=== PATIENT | female | born 1945 | race Caucasian/White ===

== ENCOUNTER → 2016-10-31 | Outpatient (CLI) | payer MEDICARE ==
[~2016-10-31] MED LIST: /WARF5TA OR; ACET500T2 OR; ANTIDIARRHEAL OR; BISO5TAB54 PO; BYSTOLIC PO; CYMB60CA3 PO; FERR325T OR; GLIP5TAB2 PO; GLUC850T OR; LISI2.5T PO; METF1000 PO; PAIN325T OR; PERC5TAB8 OR; PERC7.5T12 PO; PRAV20TA2 OR; WARF5VL PO; [UNRECOGNIZED DRUG - OTHER] OR; acetaminophen OR
--- NOTE | 2016-10-31 09:15 | ECGEPIP ---
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
[2016-10-31 09:19] LABS: ANION GAP 13 MEQ/L (8-16); BLOOD UREA NITROGEN 17 MG/DL (7-18); CALCIUM LEVEL 9.6 MG/DL (8.8-10.2); CARBON DIOXIDE LEVEL 24 MEQ/L (21-32); CHLORIDE LEVEL 103 MEQ/L (98-107); CREATININE FOR GFR 0.75 MG/DL (0.55-1.02); GLOMERULAR FILTRATION RATE > 60.0 (>39); GLUCOSE, FASTING 288 MG/DL (83-110); SODIUM LEVEL 140 MEQ/L (136-145)
[2016-10-31 09:58] LABS: COLLAGEN ADP 84 SECONDS (56-103)
== END ==
LOC: M LAB 08:12
PROVIDERS: ATTEND Ophthalmology
DX: Z01.818 Encounter for other preprocedural examination (principal); H25.13 Age-related nuclear cataract, bilateral

== ENCOUNTER → 2016-11-06 | Outpatient (REF) | payer MEDICARE ==
[~2016-11-06] MED LIST changes: +ASPI1TAB24 PO; +BISO5TAB5 PO; +FOLI1TAB2 PO; +GLIP5TAB8 PO; +LISI-542 PO; +METF500T PO; +NOVOINJ13 SC; +SIMV40TA2 PO; +SULF500T2 PO; +VITA500046 PO
== END ==
LOC: M LAB REF 12:59
PROVIDERS: ATTEND Nurse Practitioner Adult Health
DX: M05.79 Rheumatoid arthritis with rheumatoid factor of multiple sites without organ or systems involvement (principal)

== ENCOUNTER → 2016-11-14 | Day surgery (SDC) | payer MEDICARE ==
[~2016-11-14] VITALS: Ht 152.4 cm; Wt 81.6 kg
[~2016-11-14] MED LIST changes: +ACETAMINOPHEN 325 MG TAB As Ordered ONE; +ACETAMINOPHEN 325 MG TAB PO PRN; +ACETYLCHOLINE OPHTH SOLN 1% 2ML As Ordered ONE; +ACETYLCHOLINE OPHTH SOLN 1% 2ML XX ONE; +BALANCED SALT IRRIGATION SOLUTION 500ML BAG (FOR OR EYE MACHINE) As Ordered ONE; +BALANCED SALT IRRIGATION SOLUTION 500ML BAG (FOR OR EYE MACHINE) XX ONE; +CEFUROXIME 1MG/0.1ML INTRACAMERAL INJ As Ordered ONE; +CEFUROXIME 1MG/0.1ML INTRACAMERAL INJ ICAM ONE; +CYCLOPENTOLATE 2% OPHTH SOLN As Ordered ONE; +CYCLOPENTOLATE 2% OPHTH SOLN XX ONE; +D5W/0.2% SODIUM CHLORIDE 250 ML IV SCH; +HEALON DUET (HEALON 10MG/ML 0.55ML & HEALON ENDOCOAT 30MG/ML 0.85ML) As Ordered ONE; +HEALON DUET (HEALON 10MG/ML 0.55ML & HEALON ENDOCOAT 30MG/ML 0.85ML) IO ONE; +LABETALOL HCL 100 MG/20 ML VIAL As Ordered ONE; +LIDOCAINE 0.75%/EPINEPHRINE 0.025% IN BSS 1ML SYR INTRACAMERAL (OR ONLY) As Ordered ONE; +LIDOCAINE 0.75%/EPINEPHRINE 0.025% IN BSS 1ML SYR INTRACAMERAL (OR ONLY) ICAM ONE; +LIDOCAINE 4% INJ 5 ML AMP XX ONE; +MIDAZOLAM INJ 2 MG/2 ML VIAL (J2250) As Ordered ONE; +OFLOXACIN 0.3 % (OCUFLOX) OPTH SOL 5ML OD ONE; +PHENYLEPHRINE 2.5% OPHTH SOL 2ML OD ONE; +POVIDONE-IODINE 5% OPHTH PREP SOL 30ML As Ordered ONE; +PROPARACAINE 0.5% OPHTH SOL 15ML OD ONE; +TOBRADEX OPHTH OINT 3.5 GM As Ordered ONE; +TOBRADEX OPHTH OINT 3.5 GM XX ONE; +TRIMETHOBENZAMIDE 300 MG CAP PO PRN; +TROPICAMIDE 1% OPHTH SOLN 2 ML OD ONE; +fentaNYL 100 MCG/2 ML INJECTION (J3010) As Ordered ONE
[2016-11-14 12:45] VITALS: BP 134/63
--- NOTE | 2016-11-15 09:19 | RO ---
DATE OF PROCEDURE: 11/14/2016 PREOPERATIVE DIAGNOSES: 1. Visually significant nuclear sclerotic cataract, right eye 2. Natural monovision, NEAR vision of the right eye 3. Small pupil, right eye POSTOPERATIVE DIAGNOSES: 1. Visually significant nuclear sclerotic cataract, right eye 2. Natural monovision, NEAR vision of the right eye 3. Small pupil, right eye PROCEDURE: Complex extracapsular cataract removal with placement of a basic implant, ZCB00, 24.0 diopter for NEAR vision, with use of a Malyugin ring SURGEON: Brandon Montes DO [employer] DRIVER: ANESTHESIA: Local with monitored anesthesia care (MAC). COMPLICATIONS: None. POSTOPERATIVE CONDITION: Stable. INDICATION FOR SURGERY: Blurred vision right eye affecting patient's activities of daily living. DESCRIPTION OF PROCEDURE: The patient was seen in the preoperative area and properly identified. Consents were reviewed, and patient voluntarily elected to proceed with near vision implant of the right eye. The correct operative eye was identified and marked. Attention was turned to that eye. The patient received topical antibiotics in the preoperative area. The patient then received topical dilating drops consisting of tropicamide and phenylephrine. The patient was then transferred to the operating room. The correct side was reidentified. The patient received topical anesthetics and antibiotics on the surface of the eye. The eye was prepped and draped in a sterile fashion. The upper and lower eyelids were isolated with Tegaderm tape, and the lids were held open with an adjustable speculum. Using a sideport blade, a paracentesis incision was made. Intraocular preservative-free lidocaine was then injected into the anterior chamber. Viscoelastic was then injected into the anterior chamber through the paracentesis. Using a 2.65 mm sharp-tipped keratome, the anterior chamber was entered via a temporal clear corneal incision. The patient was noted to have a small pupil, and the decision to place a Malyugin ring was made. Additional viscoelastic was placed, and a 7.0mm Malyugin ring was placed to expand the pupil and then centered. A continuous curvilinear capsulorrhexis was created with the aid of a 26-gauge cystotome and Utrata forceps. Hydrodissection was performed with balanced salt solution (BSS) on a blunt cannula until the nucleus was freely mobile. The crystalline lens was phacoemulsified and aspirated. Additional cohesive viscoelastic was placed into the capsular bag to deepen it. A ZCB00, 24.0 diopter lens was placed into the capsular bag and confirmed by visualizing the continuous curvilinear capsulorrhexis. The Malyugin ring was removed from the iris and then the eye. Additional irrigation and aspiration was used to remove cortical material and remaining viscoelastic. The clear corneal incision was hydrated with BSS on a blunt cannula. The lens was well positioned. The incisions were then tested for leaks and found to be negative. The eye was then palpated for appropriate pressure and adjusted accordingly with BSS. The eyelid speculum was then carefully removed. Tobradex ointment was placed in the eye. An eye patch and shield were then secured over the eye. The patient tolerated the procedure well and was discharged to the recovery unit in a stable condition. MORENITA
== END | disposition home or self-care (01) ==
LOC: M SDC 08:11
PROVIDERS: ATTEND Ophthalmology
DX: H25.11 Age-related nuclear cataract, right eye (principal); H21.561 Pupillary abnormality, right eye; I10 Essential (primary) hypertension; E78.5 Hyperlipidemia, unspecified; E10.9 Type 1 diabetes mellitus without complications; Z79.4 Long term (current) use of insulin; Z79.82 Long term (current) use of aspirin; Z87.891 Personal history of nicotine dependence; D64.9 Anemia, unspecified
CPT/HCPCS: 66982; J2250; J3010; V2632

== ENCOUNTER → 2016-12-05 | Day surgery (SDC) | payer MEDICARE ==
[~2016-12-05] VITALS: Ht 152.4 cm; Wt 81.6 kg
[~2016-12-05] MED LIST changes: -ACETAMINOPHEN 325 MG TAB As Ordered ONE; +AcetaZOLAMIDE 500 MG ER CAP PO ONE; -BALANCED SALT IRRIGATION SOLUTION 500ML BAG (FOR OR EYE MACHINE) XX ONE; +BISOPROLOL FUM 2.5 MG PER 1/2TAB PO ONE; -CYCLOPENTOLATE 2% OPHTH SOLN As Ordered ONE; -CYCLOPENTOLATE 2% OPHTH SOLN XX ONE; +D5W/0.2% SODIUM CHLORIDE 1,000 ML IV SCH; -D5W/0.2% SODIUM CHLORIDE 250 ML IV SCH; -HEALON DUET (HEALON 10MG/ML 0.55ML & HEALON ENDOCOAT 30MG/ML 0.85ML) IO ONE; -LABETALOL HCL 100 MG/20 ML VIAL As Ordered ONE; +LIDOCAINE 4% INJ 5 ML AMP As Ordered ONE; +LIDOCAINE 4% INJ 5 ML AMP OU ONE; -LIDOCAINE 4% INJ 5 ML AMP XX ONE; -OFLOXACIN 0.3 % (OCUFLOX) OPTH SOL 5ML OD ONE; +OFLOXACIN 0.3 % (OCUFLOX) OPTH SOL 5ML OS ONE; -PHENYLEPHRINE 2.5% OPHTH SOL 2ML OD ONE; +PHENYLEPHRINE 2.5% OPHTH SOL 2ML OS ONE; -PROPARACAINE 0.5% OPHTH SOL 15ML OD ONE; +PROPARACAINE 0.5% OPHTH SOL 15ML OS ONE; -TOBRADEX OPHTH OINT 3.5 GM XX ONE; -TROPICAMIDE 1% OPHTH SOLN 2 ML OD ONE; +TROPICAMIDE 1% OPHTH SOLN 2 ML OS ONE
[2016-12-05 07:20] VITALS: BP 175/75
[2016-12-05 08:15] VITALS: BP 143/75
--- NOTE | 2016-12-05 19:43 | RO ---
DATE OF PROCEDURE: 12/05/2016 PREOPERATIVE DIAGNOSIS: 1. Visually significant nuclear sclerotic cataract, left eye. 2. Pseudoexfoliation, left eye 3. Small pupil, left eye POSTOPERATIVE DIAGNOSIS: 1. Visually significant nuclear sclerotic cataract, left eye. 2. Pseudoexfoliation, left eye 3. Small pupil, left eye PROCEDURE: Complex cataract extraction with use of phacoemulsification, Malyugin ring and placement of intraocular lens ZCB00 22.0 diopters, left eye. SURGEON: Brandon Montes DO WATER SUPERVISOR: ANESTHESIA: Local with monitored anesthesia care (MAC) and use of Shugarcaine ( 4% lidocaine, 1:1000 epinephrine). COMPLICATIONS: None. POSTOPERATIVE CONDITION: Stable. INDICATION FOR SURGERY: Blurred vision left eye affecting patient's activities of daily living. DESCRIPTION OF PROCEDURE: The patient was seen in the preoperative area and properly identified. The correct operative eye was identified and marked. Attention was turned to that eye. The patient received optical antibiotics in the preoperative area. The patient then received topical dilating drops consisting of tropicamide and phenylephrine. The patient was then transferred to the operating room. The correct side was reidentified. The patient received topical anesthetics and antibiotics on the surface of the eye. The eye was prepped and draped in a sterile fashion. The upper and lower eyelids were isolated with Tegaderm tape, and the lids were held open with an adjustable speculum. Using a sideport blade, a paracentesis incision was made. Shugarcaine was then injected into the anterior chamber. Viscoelastic was then injected into the anterior chamber through the paracentesis. Using a 2.65 mm sharp-tipped keratome, the anterior chamber was entered via a temporal clear corneal incision. A 7.0mm Malyugin ring was placed without difficulty A continuous curvilinear capsulorrhexis was created with the aid of a 26-gauge cystotome and Utrata forceps. Hydrodissection was performed with BSS on a blunt cannula until the nucleus was freely mobile. The crystalline lens was phacoemulsified and aspirated. Additional cohesive viscoelastic was placed into the capsular bag to deepen it. A ZCB00 22.0 diopter lens was placed into the capsular bag and confirmed by visualizing the continuous curvilinear capsulorrhexis. Additional irrigation and aspiration was used to remove cortical material. The Malyugin ring was removed from the eye, and irrigation and aspiration was then used removing the remaining viscoelastic. The clear corneal incision was hydrated with BSS on a blunt cannula. The lens was well positioned. The incisions were then tested for leaks and found to be negative. Miochol was placed showing a moderately small pupil. The eye was then palpated for appropriate pressure and adjusted accordingly with BSS. Cefuroxime, 0.5cc was placed into the anterior chamber. The eyelid speculum was then carefully removed. Tobradex ointment was placed in the eye. An eye patch and shield were then secured over the eye. The patient tolerated the procedure well and was discharged to the recovery unit in a stable condition. MORENITA
== END | disposition home or self-care (01) ==
LOC: M SDC 06:24
PROVIDERS: ATTEND Ophthalmology
DX: H25.12 Age-related nuclear cataract, left eye (principal); H25.89 Other age-related cataract; H21.562 Pupillary abnormality, left eye; E10.9 Type 1 diabetes mellitus without complications; I10 Essential (primary) hypertension; E78.5 Hyperlipidemia, unspecified; Z87.891 Personal history of nicotine dependence; Z79.899 Other long term (current) drug therapy; Z79.82 Long term (current) use of aspirin; Z79.4 Long term (current) use of insulin
CPT/HCPCS: 66982; J2250; J3010; V2632

== ENCOUNTER → 2017-02-06 | Outpatient (CLI) | payer MEDICARE ==
[~2017-02-06] MED LIST changes: -ACETAMINOPHEN 325 MG TAB PO PRN; -ACETYLCHOLINE OPHTH SOLN 1% 2ML As Ordered ONE; -ACETYLCHOLINE OPHTH SOLN 1% 2ML XX ONE; -AcetaZOLAMIDE 500 MG ER CAP PO ONE; -BALANCED SALT IRRIGATION SOLUTION 500ML BAG (FOR OR EYE MACHINE) As Ordered ONE; -BISOPROLOL FUM 2.5 MG PER 1/2TAB PO ONE; -CEFUROXIME 1MG/0.1ML INTRACAMERAL INJ As Ordered ONE; -CEFUROXIME 1MG/0.1ML INTRACAMERAL INJ ICAM ONE; -D5W/0.2% SODIUM CHLORIDE 1,000 ML IV SCH; -HEALON DUET (HEALON 10MG/ML 0.55ML & HEALON ENDOCOAT 30MG/ML 0.85ML) As Ordered ONE; -LIDOCAINE 0.75%/EPINEPHRINE 0.025% IN BSS 1ML SYR INTRACAMERAL (OR ONLY) As Ordered ONE; -LIDOCAINE 0.75%/EPINEPHRINE 0.025% IN BSS 1ML SYR INTRACAMERAL (OR ONLY) ICAM ONE; -LIDOCAINE 4% INJ 5 ML AMP As Ordered ONE; -LIDOCAINE 4% INJ 5 ML AMP OU ONE; -MIDAZOLAM INJ 2 MG/2 ML VIAL (J2250) As Ordered ONE; -OFLOXACIN 0.3 % (OCUFLOX) OPTH SOL 5ML OS ONE; -PHENYLEPHRINE 2.5% OPHTH SOL 2ML OS ONE; -POVIDONE-IODINE 5% OPHTH PREP SOL 30ML As Ordered ONE; -PROPARACAINE 0.5% OPHTH SOL 15ML OS ONE; -TOBRADEX OPHTH OINT 3.5 GM As Ordered ONE; -TRIMETHOBENZAMIDE 300 MG CAP PO PRN; -TROPICAMIDE 1% OPHTH SOLN 2 ML OS ONE; -fentaNYL 100 MCG/2 ML INJECTION (J3010) As Ordered ONE
--- NOTE | 2017-02-06 11:01 | REP ---
Clinical: Shortness of breath. Technique: PA and lateral. Comparison: 05/26/2013. Findings: Diffuse chronic interstitial changes are appreciated and superimposed interstitial edema cannot be excluded. No focal consolidation, effusion, or pneumothorax. Mediastinum and cardiac silhouette are stable with mild cardiomegaly again suggested. Skeletal structures are intact. Impression: Chronic interstitial changes. Cannot exclude mild pulmonary vascular congestion or interstitial edema. Signed by Kalpesh Bahena MD 02/06/2017 10:53 A
== END ==
LOC: M WUC 10:44
PROVIDERS: ATTEND Nurse Practitioner Adult Health
DX: R07.89 Other chest pain (principal); R06.02 Shortness of breath

== ENCOUNTER → 2017-02-20 | Outpatient (REF) | payer MEDICARE | LOC: M LAB REF 12:25 | PROVIDERS: ATTEND Nurse Practitioner Adult Health | DX: N39.0 Urinary tract infection, site not specified (principal) ==

== ENCOUNTER → 2017-04-11 | Outpatient (REF) | payer OTHER ==
[~2017-04-11] MED LIST changes: +ASPI-161 PO; -ASPI1TAB24 PO; -FOLI1TAB2 PO; +FOLI1TAB4 PO; -METF500T PO; +METF500T13 PO
[2017-04-11 14:13] LABS: COMPLEMENT C3 151 MG/DL (90-180); COMPLEMENT C4 12.5 MG/DL (10-40); TOTAL PROTEIN 7.4 GM/DL (6.4-8.2)
[2017-04-14 10:50] LABS: ALBUMIN % 53.2 % (55.8-66.1)
[2017-04-14 10:51] LABS: ALBUMIN 3.94 GM/DL (3.29-5.55); GAMMA GLOBULIN % 16.2 % (11.1-18.8)
[2017-04-17 00:07] LABS: KAPPA/LAMBDA RATIO SERUM 1.16 (0.26-1.65)
== END ==
LOC: M LAB REF 13:18
PROVIDERS: ATTEND Internal Medicine Nephrology
DX: R80.9 Proteinuria, unspecified (principal); R31.9 Hematuria, unspecified

== ENCOUNTER → 2017-05-02 | Outpatient (REF) | payer OTHER | LOC: M LAB REF 14:20 | PROVIDERS: ATTEND Nurse Practitioner Adult Health | DX: M05.79 Rheumatoid arthritis with rheumatoid factor of multiple sites without organ or systems involvement (principal) ==

== ENCOUNTER → 2017-05-21 | Outpatient (CLI) | payer OTHER ==
[2017-05-21 13:43] LABS: BASO % 0.9 % (0.0-1.0); EOS # 0.3 K/mm3 (0.0-0.50); LYMPH # 0.7 K/mm3 (1.5-4.5); LYMPH % 17.9 % (24.0-44.0); MEAN CORPUSCULAR HEMOGLOBIN 27.3 pg (27.0-33.0); MEAN CORPUSCULAR HGB CONC 32.6 g/dl (32.0-36.5); MEAN CORPUSCULAR VOLUME 83.6 fl (80.0-96.0); MONO # 0.3 K/mm3 (0.0-0.8); NEUTROPHILS # 2.5 K/mm3 (1.8-7.7); NEUTROPHILS % 63.2 % (36.0-66.0); RED CELL DISTRIBUTION WIDTH 15.3 % (11.5-14.5); WHITE BLOOD COUNT 3.9 K/mm3 (4.0-10.0)
== END ==
LOC: M WUC 09:55
PROVIDERS: ATTEND Internal Medicine Rheumatology
DX: R79.89 Other specified abnormal findings of blood chemistry (principal)

== ENCOUNTER 2017-07-11 16:11 | Emergency (ER) | payer OTHER ==
[~2017-07-11] VITALS: Ht 149.9 cm; Wt 86.4 kg
[2017-07-11] MEDS ORDERED: ACETAMINOPHEN 325 MG TAB PO ONE (18:00)
[2017-07-11 19:31] VITALS: BP 119/57
--- NOTE | 2017-07-11 19:34 | REP ---
Left wrist series: Four views: History: Trauma. Findings: Four views of the left wrist show diffuse osteopenia. There is mild osteoarthritic spurring at the navicular multangular and first carpometacarpal articulations. No fracture is seen. Impression: No fracture noted. Diffuse osteopenia. Mild osteoarthritic changes. Signed by Aaron Poole MD 07/11/2017 07:46 P
--- NOTE | 2017-07-11 19:34 | REP ---
Left knee series: Four views. History: Trauma. Findings: Four views of the left knee demonstrate a left knee arthroplasty with its components in good position. There is diffuse osteopenia. Vascular calcification is noted. No fracture or subluxation is seen. Impression: No traumatic abnormality. Left knee arthroplasty components in good position. Signed by Aaron Poole MD 07/11/2017 07:46 P
== END 2017-07-11 19:34 | disposition home or self-care (01) ==
LOC: M ED 16:11
DX: S39.012A Strain of muscle, fascia and tendon of lower back, initial encounter (principal); S29.012A Strain of muscle and tendon of back wall of thorax, initial encounter; S80.02XA Contusion of left knee, initial encounter; S60.212A Contusion of left wrist, initial encounter; W01.0XXA Fall on same level from slipping, tripping and stumbling without subsequent striking against object, initial encounter; Y92.099 Unspecified place in other non-institutional residence as the place of occurrence of the external cause; Y93.9 Activity, unspecified; Y99.9 Unspecified external cause status; I10 Essential (primary) hypertension; E11.9 Type 2 diabetes mellitus without complications; Z96.652 Presence of left artificial knee joint; M85.88 Other specified disorders of bone density and structure, other site; M19.032 Primary osteoarthritis, left wrist; Z79.82 Long term (current) use of aspirin; Z79.4 Long term (current) use of insulin; Z79.899 Other long term (current) drug therapy

== ENCOUNTER → 2017-08-04 | Outpatient (CLI) | payer OTHER ==
[2017-08-04 14:18] LABS: EOS # 0.3 10^3/uL (0.0-0.50); EOS % 7.9 % (0.0-3.0); IMMATURE GRANULOCYTE % 0.2 % (0-0); LYMPH # 0.9 10^3/uL (1.5-4.5); LYMPH % 20.5 % (24.0-44.0); MEAN CORPUSCULAR HEMOGLOBIN 26.3 pg (27.0-33.0); MEAN CORPUSCULAR HGB CONC 30.8 g/dl (32.0-36.5); MEAN CORPUSCULAR VOLUME 85.3 fl (80.0-96.0); MONO # 0.5 10^3/uL (0.0-0.8); MONO % 11.9 % (0.0-5.0); NEUTROPHILS # 2.5 10^3/uL (1.8-7.7); NEUTROPHILS % 58.5 % (36.0-66.0); PLATELET COUNT, AUTOMATED 165 10^3/uL (150-450); WHITE BLOOD COUNT 4.2 10^3/uL (4.0-10.0)
== END ==
LOC: M WUC 08:44
DX: R79.89 Other specified abnormal findings of blood chemistry (principal)

== ENCOUNTER → 2018-03-17 | Outpatient (CLI) | payer OTHER ==
[2018-03-17 12:10] LABS: BASO % 0.6 % (0.0-1.0); EOS # 0.3 10^3/uL (0.0-0.50); EOS % 6.3 % (0.0-3.0); HEMATOCRIT 46.4 % (36.0-47.0); HEMOGLOBIN 13.7 g/dl (12.0-15.5); IMMATURE GRANULOCYTE % 0.2 % (0-3.0); LYMPH # 0.8 10^3/uL (1.5-4.5); LYMPH % 17.6 % (24.0-44.0); MEAN CORPUSCULAR HEMOGLOBIN 25.1 pg (27.0-33.0); MEAN CORPUSCULAR HGB CONC 29.5 g/dl (32.0-36.5); MEAN CORPUSCULAR VOLUME 85.1 fl (80.0-96.0); MONO # 0.6 10^3/uL (0.0-0.8); MONO % 12.8 % (0.0-5.0); NEUTROPHILS % 62.5 % (36.0-66.0); PLATELET COUNT, AUTOMATED 169 10^3/uL (150-450); RED BLOOD COUNT 5.45 10^6/uL (4.00-5.40); RED CELL DISTRIBUTION WIDTH 16.7 % (11.5-14.5); WHITE BLOOD COUNT 4.8 10^3/uL (4.0-10.0)
[2018-03-17 12:33] LABS: ERYTHROCYTE SEDIMENTATION RATE 6 mm/hr (0-30)
[2018-03-17 13:00] LABS: ALBUMIN 3.3 GM/DL (3.2-5.2); ALT/SGPT 26 U/L (12-78); AST/SGOT 25 U/L (7-37); CREATININE FOR GFR 0.66 MG/DL (0.55-1.30); GLOMERULAR FILTRATION RATE > 60.0 (>39)
== END ==
LOC: M WUC 08:45
DX: M05.79 Rheumatoid arthritis with rheumatoid factor of multiple sites without organ or systems involvement (principal)
CPT/HCPCS: 84460

== ENCOUNTER → 2018-07-29 | Outpatient (REF) | payer OTHER ==
[2018-07-29 18:48] LABS: C REACTIVE PROTEIN QUANTITATIV 1.01 MG/DL (0.00-0.30)
== END ==
LOC: M LAB REF 17:52
DX: M05.79 Rheumatoid arthritis with rheumatoid factor of multiple sites without organ or systems involvement (principal)
CPT/HCPCS: 86140

== ENCOUNTER → 2018-07-30 | Outpatient (CLI) | payer OTHER | LOC: M WUC 09:48 | DX: M19.042 Primary osteoarthritis, left hand (principal) | CPT/HCPCS: 73130 ==

== ENCOUNTER → 2018-08-28 | Outpatient (REF) | payer OTHER ==
[2018-08-31 10:53] LABS: PTH INTACT 64.6 PG/ML (18.5-88.0)
== END ==
LOC: M LAB REF 09:44
DX: E83.52 Hypercalcemia (principal)
CPT/HCPCS: 83970

== ENCOUNTER 2019-03-04 10:03 | Inpatient (IN) | payer MEDICARE, OTHER ==
[~2019-03-04] VITALS: Ht 149.9 cm; Wt 90.6 kg
[~2019-03-04 10:03] MED LIST changes: -/WARF5TA OR; +COUM1TAB17 OR; +FOLI1TAB11 PO; -FOLI1TAB4 PO
[2019-03-04] MEDS ORDERED: MAGN400C PO (10:25)
[2019-03-04] MEDS ORDERED: FURO40TA2 PO (10:25)
[2019-03-04] MEDS ORDERED: ALBU8.5H INH (10:25)
[2019-03-04] MEDS ORDERED: INCR1INH INH (10:25)
--- NOTE | 2019-03-04 11:00 | REP ---
Portable chest x-ray: Single view. History: Dyspnea and cough. Comparison chest x-ray: February 06, 2017. Findings: Moderate cardiomegaly is observed. There are small bilateral pleural effusions, right greater than left. Pulmonary vascular cephalization and congestion is seen. There is diffuse moderate interstitial edema pattern. Impression: Significant CHF with bilateral effusions, vascular congestion, and moderate interstitial edema. Electronically Signed by Aaron Poole MD 03/04/2019 10:51 A
[2019-03-04] MEDS ORDERED: FUROSEMIDE 40 MG/4 ML VIAL (J1940) IV ONE (11:15)
[2019-03-04 11:18] LABS: BASO % 0.3 % (0.0-1.0); EOS # 0.1 10^3/uL (0.0-0.50); EOS % 1.2 % (0.0-3.0); HEMOGLOBIN 12.1 g/dl (12.0-15.5); LYMPH # 0.6 10^3/uL (1.5-4.5); LYMPH % 8.3 % (24.0-44.0); MEAN CORPUSCULAR HGB CONC 28.8 g/dl (32.0-36.5); MEAN CORPUSCULAR VOLUME 90.1 fl (80.0-96.0); MONO # 0.3 10^3/uL (0.0-0.8); MONO % 4.5 % (0.0-5.0); NEUTROPHILS # 5.8 10^3/uL (1.8-7.7); NEUTROPHILS % 85.4 % (36.0-66.0); PLATELET COUNT, AUTOMATED 200 10^3/uL (150-450); RED BLOOD COUNT 4.66 10^6/uL (4.00-5.40); WHITE BLOOD COUNT 6.7 10^3/uL (4.0-10.0)
[2019-03-04] MEDS ORDERED: SULF50TA PO (11:27)
[2019-03-04] MEDS ORDERED: PRED10TA2 PO (11:27)
[2019-03-04] MEDS ORDERED: METF500T4 PO (11:27)
[2019-03-04] MEDS ORDERED: GLIP10TA6 PO (11:27)
[2019-03-04] MEDS ORDERED: NOVO70VL SC ×2 (11:27)
[2019-03-04 11:43] LABS: ALBUMIN 3.2 GM/DL (3.2-5.2); ALT/SGPT 15 U/L (12-78); BILIRUBIN,DIRECT 0.1 MG/DL (0.0-0.2); BILIRUBIN,TOTAL 0.3 MG/DL (0.2-1.0); BLOOD UREA NITROGEN 12 MG/DL (7-18); CALCIUM LEVEL 9.7 MG/DL (8.8-10.2); CARBON DIOXIDE LEVEL 36 MEQ/L (21-32); CHLORIDE LEVEL 104 MEQ/L (98-107); CK-MB VALUE MASS 1.1 NG/ML (<3.6); CPK CREATINE PHOSPHOKINASE 31 U/L (26-192); CREATININE FOR GFR 0.44 MG/DL (0.55-1.30); GLOMERULAR FILTRATION RATE > 60.0 (>39); GLUCOSE, FASTING 60 MG/DL (70-100); MB/CK RELATIVE INDEX 3.55 (< OR =4); NT-PRO BNP 1234 PG/ML (<125); POTASSIUM SERUM 4.3 MEQ/L (3.5-5.1); SODIUM LEVEL 144 MEQ/L (136-145); THYROXINE (T4) 9.8 UG/DL (4.5-12.0); TROPONIN I 0.02 NG/ML (< 0.10)
[2019-03-04 13:15] VITALS: BP 164/82
[2019-03-04] MEDS ORDERED: DEXTROSE 50% 50 ML SYRINGE IV PRN (13:15)
[2019-03-04] MEDS ORDERED: GLUCOSE 4 GM CHEW TABLET PO PRN (13:15)
[2019-03-04] MEDS ORDERED: GLUCAGON FOR INJ 1 MG VIAL (J1610) SC PRN (13:15)
--- NOTE | 2019-03-04 13:54 | HPE ---
DATE OF ADMISSION: 03/04/2019 PRIMARY CARE PROVIDER: Chapito Dash Jr., MD/MARU Dahl THERAPY DIRECTOR: Galileo Camarena MD PRINCIPAL DIAGNOSIS: Acute on chronic cor. pulmonale. HISTORY: Alejandra Farley is a 73-year-old female admitted to the hospitalist service. She has been having lower extremity edema problems for several weeks. She has apparently been started on some furosemide as an outpatient. She did not respond to this. She came to the emergency room. She was given some intravenous furosemide with a modest diuresis but desaturated to the mid-70s on supplemental oxygen with ambulation. She is admitted for further therapy. I do not have access to all of her outpatient records. She had a preoperative done before a October 2016 cataract extraction, which does not mention any lung disease despite the fact that the patient was on supplemental oxygen and used inhalers. Per the patient, she has interstitial lung disease. Has been on supplemental oxygen and follows with Dr. Camarena. She has a history of rheumatoid arthritis, hypertensive heart disease, hyperlipidemia, iron-deficiency anemia, diabetic nephropathy with chronic kidney disease, elevated liver function tests from methotrexate with history of fatty liver. SURGICAL HISTORY: Colonoscopy 2012, right knee replacement 2012, hysterectomy, carpal tunnel release on the right, neuroma of left foot. FAMILY HISTORY: Mother had a stroke and myocardial infarction (CT) at 88. Father at [address], metastatic cancer. Sister with diabetes. Son had a stroke at 49, of influenza 2017. Brother suddenly in 2017. SOCIAL HISTORY: Former smoker. Quit many years ago. No significant alcohol intake. REVIEW OF SYSTEMS: She denies any chest pain, palpitations, hemoptysis, sputum production, frequency, urgency, dysuria. She is vague on details, but it sounds like she saw [facility] once for part of the workup on this. I do not have access to those records. PHYSICAL EXAMINATION: 169/71, pulse of 90, respiratory rate 18, 86% oxygen (O2) saturation on 5 liters. General appearance: Cushingoid appearance. Resting comfortably. Visiting with family member. No respiratory distress at rest. Pupils equal, round, and reactive to light. Tympanic membranes normal. Pharynx benign. Neck: No masses. Lungs: Have fibrotic rales bilaterally. White count 6.7, hemoglobin 12.1, platelets 200. Sodium 144, potassium 4.3, BUN 12, creatinine 0.4, glucose is 60, BNP is 1230. Arterial blood gas (ABG) 7.33/73/56. IMPRESSION: 1. Exacerbation of acute on chronic cor. pulmonale. The patient does have significant pulmonary edema. I do not have access to the cardiology nor the pulmonary records, but she tells me that she carries the diagnosis of pulmonary hypertension. She will be admitted to progressive care unit (PCU). Intravenous Lasix ordered for diuresis. Supplemental oxygen ordered. Will consult pulmonology. Hopefully, they can fill in the gaps with some of the details of her pulmonary condition. I think she has had a recent echocardiogram, so I am not repeating this right now, unless we cannot get a copy of it to the chart, in which case we would have to repeat it while she is here. 2. Rheumatoid arthritis. It might be the etiology of her pulmonary fibrosis. Will continue her sulfasalazine 1000 mg twice a day. 3. Hypertension. Continue her bisoprolol. 4. Diabetes. Fingerstick blood sugar with coverage ordered. 5. Hyperlipidemia. Continue her simvastatin 40 mg daily.
[2019-03-04] MEDS: FUROSEMIDE 100 MG/10 ML VIAL (J1940) IV SCH ×3 (15:15→23:57)
[2019-03-04 16:00] VITALS: BP 148/78
[2019-03-04] MEDS: ENOXAPARIN 40 MG/0.4 ML SYRINGE (J1650) SC SCH (17:11)
[2019-03-04] MEDS: HumaLOG INSULIN (NovoLOG) PER UNIT SC SCH ×2 (17:11→21:00)
[2019-03-04 20:00] VITALS: BP 125/57
[2019-03-04] MEDS: sulfaSALAzine 500 MG TABEC PO SCH (20:11)
[2019-03-04] MEDS: SIMVASTATIN 40 MG TAB PO SCH (20:11)
--- NOTE | 2019-03-04 21:43 | ECGEPIP ---
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
[2019-03-04 23:59] VITALS: BP 155/70
[2019-03-05] VITALS (16 sets, daily range): BP systolic 101–184; BP diastolic 50–128
[2019-03-05] MEDS: FUROSEMIDE 100 MG/10 ML VIAL (J1940) IV SCH ×4 (05:31→23:58)
[2019-03-05 06:12] LABS: HEMATOCRIT 42.3 % (36.0-47.0); MEAN CORPUSCULAR HEMOGLOBIN 25.8 pg (27.0-33.0); MEAN CORPUSCULAR HGB CONC 28.4 g/dl (32.0-36.5); PLATELET COUNT, AUTOMATED 197 10^3/uL (150-450); RED BLOOD COUNT 4.65 10^6/uL (4.00-5.40); WHITE BLOOD COUNT 6.6 10^3/uL (4.0-10.0)
[2019-03-05 06:33] LABS: BLOOD UREA NITROGEN 15 MG/DL (7-18); CALCIUM LEVEL 9.6 MG/DL (8.8-10.2); CARBON DIOXIDE LEVEL 45 MEQ/L (21-32); CHLORIDE LEVEL 94 MEQ/L (98-107); CREATININE FOR GFR 0.62 MG/DL (0.55-1.30); GLOMERULAR FILTRATION RATE > 60.0 (>39); GLUCOSE, FASTING 105 MG/DL (70-100); POTASSIUM SERUM 3.5 MEQ/L (3.5-5.1); SODIUM LEVEL 141 MEQ/L (136-145)
[2019-03-05] MEDS ORDERED: METOPROLOL 5 MG/5 ML VIAL As Ordered ONE (06:33)
[2019-03-05] MEDS: METOPROLOL 5 MG/5 ML VIAL IV SCH ×3 (06:37→07:02)
[2019-03-05] MEDS: METOPROLOL TART 25 MG TABLET PO SCH ×5 (06:44→23:58)
[2019-03-05] MEDS: HumaLOG INSULIN (NovoLOG) PER UNIT SC SCH ×4 (07:23→20:56)
[2019-03-05] MEDS: FOLIC ACID 1 MG TAB PO SCH (08:42)
[2019-03-05] MEDS: sulfaSALAzine 500 MG TABEC PO SCH ×2 (08:42→20:03)
[2019-03-05] MEDS: ENOXAPARIN 40 MG/0.4 ML SYRINGE (J1650) SC SCH (08:43)
[2019-03-05] MEDS: LISINOPRIL 5 MG TAB PO SCH (08:43)
[2019-03-05] MEDS ORDERED: BISOPROLOL FUMARATE 5 MG TAB PO SCH (09:00)
[2019-03-05] MEDS ORDERED: predniSONE 20 MG TAB PO SCH (09:00)
[2019-03-05] MEDS ORDERED: ALBUTEROL 90 MCG/ACT 8GM HFA INHALER INH PRN (11:30)
--- NOTE | 2019-03-05 13:23 | CR ---
DATE OF CONSULTATION: 03/05/2019 Pulmonary consult requested for hypoxia. Ms. Farley is known to my practice and seen by my partner Dr. Camarena, usually on an every 6-month basis. According to records review, Ms. Farley has end-stage chronic obstructive pulmonary disease (COPD), emphysema phenotype with chronic hypoxic respiratory failure, secondary pulmonary hypertension, and likely untreated obstructive sleep apnea due to the patient's desire not to go through any further testing. Apparently over the past few weeks she has been seeking care by her primary care physician who has been providing her with steroid therapy due to her increase in shortness of breath. The patient described increased shortness of breath and noticing worsening oxygen desaturations with ambulation. She had no fevers. No significant cough. When questioned about chest discomfort she states she gets a twinge now and then. On further questioning, although very vague, she states it lasts maybe seconds, it does not radiate up into the neck or jaw although she has had some neck discomfort at times. She has no diaphoresis associated with the chest discomfort. The chest discomfort does not appear to be exertional in nature and can occur at rest. She states this morning she did have a tachyarrhythmia. She states everyone ran into the room because her heart rate went high on telemetry. On review of telemetry it does show a supraventricular tachycardia. The patient herself does feel better than yesterday. She had a diuresis of just over a liter. She has chronic lower extremity edema pitting to the level of her knee. She denies any fever, chills or change in weight. No change in stool. She takes INCRUSE at home once a day and has an albuterol rescue inhaler. She has not wheezing at home. PAST MEDICAL HISTORY: 1. Emphysema, Gold stage IV, chronic hypoxic respiratory failure. 2. Chronic hypercarbic respiratory failure. 3. Rheumatoid arthritis. 4. Hypertension. 5. Diabetes. 6. Secondary pulmonary hypertension. 7. History of nicotine dependence. FAMILY HISTORY: Mother had a stroke and from a heart attack at age 88. Father of a heart attack at age 72, but also had a history of cancer. She has a sister with diabetes, a son who had a stroke and a brother who suddenly in 2017. SOCIAL HISTORY: The patient is a former smoker. Denies alcohol use. No illicit drug use. ALLERGIES: No known drug allergies. MEDICATIONS: - folic acid - lisinopril - simvastatin - Zocor - sulfasalazine - Lasix 80 mg IV every 6 hours - prednisone 10 mg - Lovenox 40 mg subcu daily - metoprolol 25 mg p.o. every 6 hours Currently, she is not on any inhaled therapy while she is in the hospital. REVIEW OF SYSTEMS: CONSTITUTIONAL: No fever, chills or change in weight. HEENT: No change in vision, difficulty swallowing. No choking on food. No epistaxis. CARDIAC: As mentioned in HPI. Positive for edema. Positive palpitations, nonanginal chest discomfort. PULMONARY: No pleurisy. No cough. No hemoptysis. GASTROINTESTINAL (GI): No change in bowel habits. No nausea, vomiting, diarrhea or blood in stool. GENITOURINARY (): No burning or pain with urination. No nocturia. NEURO: No unilateral weakness, but the patient did overall feel just weak with her shortness of breath and generalized weakness. No seizures activity. No tremor. PSYCH: No depression or anxiety. No suicidal ideation. SLEEP: The patient has symptoms of sleep apnea and snoring, but previously refused workup. SKIN: No new rashes, jaundice or bruising. ENDO: No chills. No excessive thirst. The patient states she follows a low-salt diet. No hair loss. PHYSICAL EXAMINATION: Temperature is 96, pulse is 90, respiratory rate is 22, blood pressure is 120/70, oxygen saturations is 93% on 6 liters, which is close to her usual 5 liters at baseline. Intake and output from yesterday shows a net negative of 1120. General: Awake, alert and oriented. Affect and mood are appropriate. Nutrition and hygiene is good. Heent:Oral mucosa pink and moist without lesions. Oropharynx is crowded. Mallampati 4. Tongue is midline. She is edentulous. Neck is supple. No tracheal deviation. There is elevation of jugular venous pressure (JVP), despite her body habitus the jugular venous pulsations are clearly seen in a 90 degree position. No thyromegaly. Lymph no cervical, supraclavicular or axillary adenopathy. Cardiac: Regular S1-S2, I do not auscultate a murmur, rub or gallop. PMI is difficult to palpate due to body habitus. There is significant pitting edema to the level of the knee. Pulmonary: Rales bibasilar posterior in location with dullness to percussion one third of both lung lugo. Decreased chest expansion. No significant prolongation of expiratory phase. Abdomen is obese, soft, nontender and nondistended. No hepatosplenomegaly. No masses or hernia. Extremities: Edema as mentioned above. No cyanosis or clubbing. Skin: No rash, jaundice or bruising. Neuro: No unilateral weakness. The patient does have difficulty with movement due to arthritis. I did not test ambulation. There was no tremor. Musculoskeletal: Appears normal for stated age. Laboratory evaluation shows a sodium of 141, potassium 3.5, chloride 94, bicarb is up to 45, BUN is 15, creatinine 0.62 with a glucose of 133, BNP is 1234, fasting blood glucose is 105. Arterial blood gas shows a pH of 7.34, pCO2 of 73, PaO2 of 50. White blood cell count is 6.6, hemoglobin 12.0 and a platelet count of 197. EKG from admission shows sinus rhythm with left ventricular hypertrophy (LVH) and incomplete bundle branch block. Chest x-ray shows diffuse vascular congestion with bilateral pleural effusions and cardiomegaly with poor chest expansion consistent with congestive heart failure. I agree with the formal radiologic interpretation. IMPRESSION: 1. Hypoxia and dyspnea consistent with a clinical picture of congestive heart failure. The patient is volume overloaded. She does feel better with some diuresis. She is having tachyarrhythmias. Will defer these to the primary team for management. 2. Emphysema. I have added back inhaled therapy. I have prescribed Spiriva and Advair. It is not clear that the patient understands the exact inhaled therapy she should take at home and should be instructed on this at the time of discharge. At the time of discharge I would place the patient at least on a long-acting anticholinergic if not combination with long-acting beta agonist. I would taper prednisone as soon as possible as this may be contributing to edema and increases her risk of infection. She has no evidence of bronchospasm on exam. 3. Advanced directives. The patient wants to be DNR. There is no DNR paperwork in the chart. She states she does not want to be resuscitated does not want to be intubated and does not want anything over her face. Therefore, she will be DO NOT RESUSCITATE, DO NOT INTUBATE with no trial of BiPAP. 4. Probable underlying obstructive sleep apnea. The patient states that she would consider being worked up for sleep apnea now that she got into such extremis, however, she states she would not be able to wear anything over her face. We will address this as an outpatient as she will need to be in her outpatient compensated state prior to initiating workup for this. MORENITA
[2019-03-05] MEDS: TIOTROPIUM INHALER/CAPSULE (SPIRIVA) INH SCH (13:54)
[2019-03-05] MEDS: ADVAIR HFA 230/21MCG INHALER INH SCH ×2 (13:55→20:48)
--- NOTE | 2019-03-05 17:17 | IPNPDOC ---
Text Note Date of Service The patient was seen on 03/05/19. NOTE SUBJECTIVE: The patient tells me that she does have a history of atrial fibrillation. She states that she does not know what her medications are and that she does not take Coumadin. In review of her home medications and her record, I do not see that she has ever had atrial fibrillation. Patient did have a irregular heart rate up to 140; she has responded to scheduled dosing of metoprolol. OBJECTIVE: Physical exam: ENT: Neck is supple, oral mucosa is moist, she does not have adenopathy or thyromegaly, she is edentulous, no scleral icterus. Cardiovascular: Regular rate and rhythm, no appreciable murmur. Respiratory: Bilateral coarse breath sounds, no active wheezing or cough. Abdomen: Morbid central obesity, soft, nontender, nondistended, bowel tones present. Extremities: Notable, 1-2+ pitting edema bilaterally to lower extremities, pedal pulses palpable, moderate joint changes to hands and wrists. Neuro: No focal neuromotor or sensory deficit. Psych: Patient appears to have only moderately intact cognition, judgment and insight ASSESSMENT/PLAN: 1. Acute on chronic congestive heart failure--this is said to be right-sided, consistent with cor pulmonale. She has peripheral edema and pulmonary edema. She remains on aggressive diuresis. Appreciate input from the pulmonary service. Apparently, the patient wishes to be DNR. Orders have been placed, but we will need to assist her with completing a MOLST form. Other associated pulmonary problems include untreated obstructive sleep apnea. 2. Tachyarrhythmia--patient was reported to have atrial fibrillation. Heart rate was reported up to the 140s. I will again review EKG; prior EKG shows normal sinus rhythm, rate of 98.. Patient has heart rate of 85 thereafter. Patient is receiving scheduled metoprolol. 3. Rheumatoid arthritis--continues on her sulfasalazine. 4. Hypertension--the patient's bisoprolol has been replaced by lisinopril for now due to formulary. VS,Josué, I+O VS, Jose Robertobone, I+O Laboratory Tests 03/05/19 05:50 Red Blood Count 4.65, Mean Corpuscular Volume 91.0, Mean Corpuscular Hemoglobin 25.8 L, Mean Corpuscular Hemoglobin Concent 28.4 L, Red Cell Distribution Width 14.6 H, Calcium Level 9.6 Vital Signs Date Time Temp Pulse Resp B/P (MAP) Pulse Ox O2 Delivery O2 Flow Rate FiO2 03/05/19 12:44 85 116/62 03/05/19 12:00 6.0 03/05/19 12:00 97.4 17 90 03/05/19 04:00 94 03/04/19 14:33 Nasal Cannula I&O- Last 24 Hours up to 6 AM 03/05/19 06:00 Intake Total 420 ml Output Total 2580 ml Balance -2160 ml SHAKIRA HAJI MD Mar 05, 2019 17:17
[2019-03-05] MEDS: SIMVASTATIN 40 MG TAB PO SCH (20:03)
[2019-03-06] VITALS: BP 143/64
[2019-03-06 04:00] VITALS: BP 119/58
[2019-03-06 05:03] LABS: HEMATOCRIT 41.8 % (36.0-47.0); HEMOGLOBIN 11.8 g/dl (12.0-15.5); MEAN CORPUSCULAR HEMOGLOBIN 25.5 pg (27.0-33.0); MEAN CORPUSCULAR HGB CONC 28.2 g/dl (32.0-36.5); MEAN CORPUSCULAR VOLUME 90.5 fl (80.0-96.0); PLATELET COUNT, AUTOMATED 175 10^3/uL (150-450); RED BLOOD COUNT 4.62 10^6/uL (4.00-5.40); WHITE BLOOD COUNT 6.3 10^3/uL (4.0-10.0)
[2019-03-06] MEDS: FUROSEMIDE 100 MG/10 ML VIAL (J1940) IV SCH ×4 (05:30→23:57)
[2019-03-06] MEDS: METOPROLOL TART 25 MG TABLET PO SCH ×4 (05:31→23:57)
[2019-03-06 05:35] LABS: BLOOD UREA NITROGEN 29 MG/DL (7-18); CALCIUM LEVEL 9.6 MG/DL (8.8-10.2); CARBON DIOXIDE LEVEL 44 MEQ/L (21-32); CHLORIDE LEVEL 93 MEQ/L (98-107); GLOMERULAR FILTRATION RATE > 60.0 (>39); GLUCOSE, FASTING 139 MG/DL (70-100); POTASSIUM SERUM 3.6 MEQ/L (3.5-5.1); SODIUM LEVEL 142 MEQ/L (136-145)
[2019-03-06] MEDS: TIOTROPIUM INHALER/CAPSULE (SPIRIVA) INH SCH (07:35)
[2019-03-06] MEDS: ADVAIR HFA 230/21MCG INHALER INH SCH ×2 (07:35→21:23)
[2019-03-06 08:00] VITALS: BP 112/52
[2019-03-06] MEDS: HumaLOG INSULIN (NovoLOG) PER UNIT SC SCH ×4 (08:59→20:40)
[2019-03-06] MEDS: predniSONE 10 MG TAB PO SCH (09:00)
[2019-03-06] MEDS: LISINOPRIL 5 MG TAB PO SCH (09:00)
[2019-03-06] MEDS: ENOXAPARIN 40 MG/0.4 ML SYRINGE (J1650) SC SCH (09:00)
[2019-03-06] MEDS: sulfaSALAzine 500 MG TABEC PO SCH ×2 (09:00→20:40)
[2019-03-06] MEDS: FOLIC ACID 1 MG TAB PO SCH (09:00)
[2019-03-06 12:00] VITALS: BP 123/59
[2019-03-06 16:00] VITALS: BP_SYST 118; BP_SYST 123; BP_DIAS 58; BP_DIAS 59
--- NOTE | 2019-03-06 16:52 | ECGEPIP ---
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
--- NOTE | 2019-03-06 17:07 | IPNPDOC ---
Text Note Date of Service The patient was seen on 03/06/19. NOTE SUBJECTIVE: The patient is much more appropriate and able to discuss her medical condition today. She understands that she has congestive heart failure, and requires diuresis. She had a cogent conversation with the pulmonary service yesterday and has made herself DNR. She has not had any further tachyarrhythmias since being placed on metoprolol. The patient and her family continue to ask whether any medications can be removed from her medication regimen. OBJECTIVE: ENT: Neck is supple, oral mucosa is moist, she does not have adenopathy or thyromegaly, she is edentulous, no scleral icterus. Cardiovascular: Regular rate and rhythm, no appreciable murmur. Respiratory: Bilateral coarse breath sounds, no active wheezing or cough. Abdomen: Morbid central obesity, soft, nontender, nondistended, bowel tones present. Extremities: Notable, 1-2+ pitting edema bilaterally to lower extremities, pedal pulses palpable, moderate joint changes to hands and wrists. Consistent with rheumatoid arthritis Neuro: No focal neuromotor or sensory deficit. Psych: Patient appears to have only moderately intact cognition, judgment and insight ASSESSMENT/PLAN: 1. Acute on chronic congestive heart failure--this is said to be right-sided, consistent with cor pulmonale. She has peripheral edema and pulmonary edema. She remains on aggressive diuresis. Appreciate input from the pulmonary service. Apparently, the patient wishes to be DNR. Orders have been placed, and she has completed a MOLST form. We have shared her decision with family at bedside and they support her. Other associated pulmonary problems include untreated obstructive sleep apnea. 2. Tachyarrhythmia--patient was reported to have atrial fibrillation. Heart rate was reported up to the 140s. prior EKG shows normal sinus rhythm, rate of 98.. Patient has heart rate of 85 thereafter. Patient is receiving scheduled metoprolol. 3. Rheumatoid arthritis--continues on her sulfasalazine. 4. Hypertension--the patient is on bisoprolol and lisinopril. I have reviewed the patient's medication list and explained to family that at this time there really are not medications that can be removed. In fact, she will have additional medication in the form of metoprolol for rate control. VS,Nubiae, I+O VS, Fishbone, I+O Laboratory Tests 03/06/19 04:49 Red Blood Count 4.62, Mean Corpuscular Volume 90.5, Mean Corpuscular Hemoglobin 25.5 L, Mean Corpuscular Hemoglobin Concent 28.2 L, Red Cell Distribution Width 14.9 H, Calcium Level 9.6 Vital Signs Date Time Temp Pulse Resp B/P (MAP) Pulse Ox O2 Delivery O2 Flow Rate FiO2 03/06/19 16:00 97.5 84 17 118/58 (78) 82 5.0 03/06/19 04:00 95 03/04/19 14:33 Nasal Cannula I&O- Last 24 Hours up to 6 AM 03/06/19 05:59 Intake Total 780 ml Output Total 2100 ml Balance -1320 ml SHAKIRA HAJI MD Mar 06, 2019 17:07
[2019-03-06] MEDS ORDERED: ACETAMINOPHEN TAB 650MG DOSE (2X325MG) PO PRN (18:45)
[2019-03-06] MEDS: SIMVASTATIN 40 MG TAB PO SCH (20:40)
[2019-03-06 22:00] VITALS: BP 120/70
[2019-03-07] VITALS (8 sets, daily range): BP systolic 100–163; BP diastolic 55–69
[2019-03-07 05:20] LABS: HEMATOCRIT 39.1 % (36.0-47.0); HEMOGLOBIN 11.3 g/dl (12.0-15.5); MEAN CORPUSCULAR HEMOGLOBIN 25.3 pg (27.0-33.0); MEAN CORPUSCULAR HGB CONC 28.9 g/dl (32.0-36.5); MEAN CORPUSCULAR VOLUME 87.7 fl (80.0-96.0); PLATELET COUNT, AUTOMATED 172 10^3/uL (150-450); RED BLOOD COUNT 4.46 10^6/uL (4.00-5.40); WHITE BLOOD COUNT 6.2 10^3/uL (4.0-10.0)
[2019-03-07 05:42] LABS: BLOOD UREA NITROGEN 33 MG/DL (7-18); CALCIUM LEVEL 9.5 MG/DL (8.8-10.2); CARBON DIOXIDE LEVEL 44 MEQ/L (21-32); CHLORIDE LEVEL 92 MEQ/L (98-107); CREATININE FOR GFR 0.83 MG/DL (0.55-1.30); GLOMERULAR FILTRATION RATE > 60.0 (>39); GLUCOSE, FASTING 160 MG/DL (70-100); POTASSIUM SERUM 3.4 MEQ/L (3.5-5.1); SODIUM LEVEL 139 MEQ/L (136-145)
[2019-03-07] MEDS: FUROSEMIDE 100 MG/10 ML VIAL (J1940) IV SCH ×2 (06:27→12:36)
[2019-03-07] MEDS: METOPROLOL TART 25 MG TABLET PO SCH (06:28)
[2019-03-07] MEDS: TIOTROPIUM INHALER/CAPSULE (SPIRIVA) INH SCH (08:00)
[2019-03-07] MEDS: ENOXAPARIN 40 MG/0.4 ML SYRINGE (J1650) SC SCH (08:13)
[2019-03-07] MEDS: sulfaSALAzine 500 MG TABEC PO SCH ×2 (08:13→20:31)
[2019-03-07] MEDS: HumaLOG INSULIN (NovoLOG) PER UNIT SC SCH ×4 (08:14→20:31)
[2019-03-07] MEDS: predniSONE 10 MG TAB PO SCH (08:14)
[2019-03-07] MEDS: FOLIC ACID 1 MG TAB PO SCH (08:14)
[2019-03-07] MEDS: LISINOPRIL 5 MG TAB PO SCH (08:16)
[2019-03-07] MEDS: ADVAIR HFA 230/21MCG INHALER INH SCH ×2 (09:00→20:23)
[2019-03-07] MEDS: POTASSIUM CHLORIDE 10 MEQ SR TABLET PO SCH ×2 (09:55→20:31)
--- NOTE | 2019-03-07 16:41 | IPNPDOC ---
Text Note Date of Service The patient was seen on 03/07/19. NOTE SUBJECTIVE: Ms. Farley was admitted for CHF exacerbation. She has been on aggressive diuresis. She has tolerated this well with decreased edema and no adverse effect to her kidney function. She also has not had any further tachyarrhythmias since admission after being placed on metoprolol. OBJECTIVE: ENT: Neck is supple, oral mucosa is moist, she does not have adenopathy or thyromegaly, she is edentulous, no scleral icterus. Cardiovascular: Regular rate and rhythm, no appreciable murmur. Respiratory: Bilateral good air movement, no active wheezing or cough. Abdomen: Morbid central obesity, soft, nontender, nondistended, bowel tones present. Extremities: Notable decreased down to nonpitting edema bilaterally to lower extremities, pedal pulses palpable, moderate joint changes to hands and wrists. Consistent with rheumatoid arthritis Neuro: No focal neuromotor or sensory deficit. Psych: Patient appears to have moderately intact cognition, judgment and insight ASSESSMENT/PLAN: 1. Acute on chronic congestive heart failure, generally diastolic--this is said to be right-sided, consistent with cor pulmonale. She had peripheral edema and pulmonary edema. On aggressive diuresis she has improved significantly. We are able to decrease her Lasix dosing. Other associated pulmonary problems include untreated obstructive sleep apnea. 2. Tachyarrhythmia--patient was reported to have atrial fibrillation. Heart rate was reported up to the 140s. prior EKG shows normal sinus rhythm, rate of 98.. Patient has heart rate of 85 thereafter. Patient is receiving scheduled metoprolol. 3. Rheumatoid arthritis--continues on her sulfasalazine. 4. Hypertension--the patient is on bisoprolol and lisinopril. 5. Chronic hypoxic respiratory failure--the patient has a baseline FiO2 5 L/m. However, she reports having desaturation events with activity at this level. She is concerned about being discharged to home; she wants to be sure that she will not require increased oxygen with activity. We will reassess her O2 sats with activity. We are hopefully being able to discharge this patient to home tomorrow, perhaps with home health services. VS,Fishbone, I+O VS, Fishbone, I+O Laboratory Tests 03/07/19 05:00 Red Blood Count 4.46, Mean Corpuscular Volume 87.7, Mean Corpuscular Hemoglobin 25.3 L, Mean Corpuscular Hemoglobin Concent 28.9 L, Red Cell Distribution Width 14.8 H, Calcium Level 9.5 Vital Signs Date Time Temp Pulse Resp B/P (MAP) Pulse Ox O2 Delivery O2 Flow Rate FiO2 03/07/19 16:00 98.0 92 20 147/67 (93) 95 5.0 03/06/19 04:00 95 03/04/19 14:33 Nasal Cannula I&O- Last 24 Hours up to 6 AM 03/07/19 06:00 Intake Total 1370 ml Output Total 1250 ml Balance 120 ml SHAKIRA HAJI MD Mar 07, 2019 16:41
[2019-03-07] MEDS: SIMVASTATIN 40 MG TAB PO SCH (20:31)
[2019-03-07] MEDS: METOPROLOL TART 50 MG TAB PO SCH (20:31)
[2019-03-07] MEDS: FUROSEMIDE 40 MG/4 ML VIAL (J1940) IV SCH (23:13)
[2019-03-08 04:00] VITALS: BP 130/60
[2019-03-08 05:44] LABS: HEMATOCRIT 38.3 % (36.0-47.0); HEMOGLOBIN 11.2 g/dl (12.0-15.5); MEAN CORPUSCULAR HEMOGLOBIN 25.6 pg (27.0-33.0); MEAN CORPUSCULAR HGB CONC 29.2 g/dl (32.0-36.5); MEAN CORPUSCULAR VOLUME 87.6 fl (80.0-96.0); PLATELET COUNT, AUTOMATED 178 10^3/uL (150-450); RED BLOOD COUNT 4.37 10^6/uL (4.00-5.40); WHITE BLOOD COUNT 6.3 10^3/uL (4.0-10.0)
[2019-03-08 06:13] LABS: BLOOD UREA NITROGEN 33 MG/DL (7-18); CALCIUM LEVEL 9.4 MG/DL (8.8-10.2); CARBON DIOXIDE LEVEL 40 MEQ/L (21-32); CHLORIDE LEVEL 95 MEQ/L (98-107); CREATININE FOR GFR 0.85 MG/DL (0.55-1.30); GLOMERULAR FILTRATION RATE > 60.0 (>39); GLUCOSE, FASTING 169 MG/DL (70-100); SODIUM LEVEL 140 MEQ/L (136-145)
[2019-03-08] MEDS: TIOTROPIUM INHALER/CAPSULE (SPIRIVA) INH SCH (07:28)
[2019-03-08] MEDS: ADVAIR HFA 230/21MCG INHALER INH SCH (07:29)
[2019-03-08] MEDS: HumaLOG INSULIN (NovoLOG) PER UNIT SC SCH ×3 (07:40→17:14)
[2019-03-08 08:00] VITALS: BP 134/61
[2019-03-08] MEDS: ENOXAPARIN 40 MG/0.4 ML SYRINGE (J1650) SC SCH (09:33)
[2019-03-08] MEDS: predniSONE 10 MG TAB PO SCH (09:33)
[2019-03-08] MEDS: POTASSIUM CHLORIDE 10 MEQ SR TABLET PO SCH (09:33)
[2019-03-08] MEDS: sulfaSALAzine 500 MG TABEC PO SCH (09:34)
[2019-03-08] MEDS: FOLIC ACID 1 MG TAB PO SCH (09:34)
[2019-03-08 09:35] VITALS: BP 134/61
[2019-03-08] MEDS: LISINOPRIL 5 MG TAB PO SCH (09:35)
[2019-03-08] MEDS: METOPROLOL TART 50 MG TAB PO SCH (09:35)
[2019-03-08] MEDS ORDERED: SLF 3 ML SYR IV PRN (11:00)
[2019-03-08 12:00] VITALS: BP 146/67
[2019-03-08] MEDS: FUROSEMIDE 40 MG/4 ML VIAL (J1940) IV SCH (12:41)
[2019-03-08] MEDS ORDERED: SLF 3 ML SYR IV SCH (14:00)
[2019-03-08] MEDS ORDERED: ADVA230A INH (16:06)
[2019-03-08] MEDS ORDERED: FURO40TA2 PO (16:06)
[2019-03-08] MEDS ORDERED: LOPR1TAB6 PO (16:06)
[2019-03-08] MEDS ORDERED: KLOR10TA76 PO (16:07)
--- NOTE | 2019-03-08 17:49 | DS.PDOC ---
Discharge Summary General Date of Admission Mar 04, 2019 at 13:03 Date of Discharge 03/08/2019 Primary Care Physician: Carissa Parker Specialist/Consultants Involve: LORI CESPEDES Discharge Summary PROCEDURES PERFORMED DURING STAY: None. ADMITTING DIAGNOSES: 1. Acute on chronic cor pulmonale. DISCHARGE DIAGNOSES: 1. Chronic cor pulmonale, essential hypertension, dyslipidemia, iron deficiency anemia, [id number] diabetes mellitus, chronic kidney disease stage III, rheumatoid arthritis, transient tachyarrhythmia. COMPLICATIONS/CHIEF COMPLAINT: Cor Pulmonale Acute. HISTORY OF PRESENT ILLNESS/HOSPITAL COURSE: This is a 73-year-old female referred having lower extremity edema, worsening for several weeks prior to admission. She has known cor pulmonale. She has chronic hypoxic respiratory failure and is on 5 L/m at baseline. She was having episodes of desats to the mid 70s with activity. She subsequently came to the emergency room and was admitted to the hospital for evaluation and treatment. The patient was placed on the telemetry floor. She was started on very aggressive diuretic therapy. She did develop steadily decreasing peripheral edema. She slowly became more tolerant of activity. She was maintained on her baseline FiO2 5 L/m. The patient was evaluated by pulmonary services. Her chronic hypoxic respiratory failure is multifactorial; she has interstitial lung disease related to her rheumatoid arthritis, the aforementioned cor pulmonale, and untreated obstructive sleep apnea. Of interest, the patient has decided to make herself DNR and completed a MOLST form to that effect. She has also informed her family. We were gradually able to decrease her diuretic dosage. She did have a walk test at discharge that showed her maintaining her sats 90 or greater on her baseline FiO2 5 L/m. Additional issue is the patient did develop a tachyarrhythmia. It was not clear whether it was truly atrial fibrillation. The patient was responsive to being placed on oral metoprolol. The arrhythmia did not recur.. DISCHARGE MEDICATIONS: Please see below. Patient and family had requested reduction in medications. Medication list is actually minimal and appropriate for managing her current medical conditions. ALLERGIES: Please see below. PHYSICAL EXAMINATION ON DISCHARGE: VITAL SIGNS: Please see below. ENT: Neck is supple, oral mucosa is moist, she does not have adenopathy or thyromegaly, she is edentulous, no scleral icterus. Cardiovascular: Regular rate and rhythm, no appreciable murmur. Respiratory: Bilateral good air movement, no active wheezing or cough. Abdomen: Morbid central obesity, soft, nontender, nondistended, bowel tones present. Extremities: Notable decreased down to nonpitting edema bilaterally to lower extremities, pedal pulses palpable, moderate joint changes to hands and wrists. Consistent with rheumatoid arthritis Neuro: No focal neuromotor or sensory deficit. She has been independently ambulatory. Psych: Patient appears to have moderately intact cognition, judgment and insight LABORATORY DATA: Please see below. IMAGING: PROGNOSIS: ACTIVITY: As tolerated. DIET: 2 g sodium, 1800 mL fluid restriction DISCHARGE PLAN: Patient is stable for discharge to home. She'll have home health services. She will follow up with her primary care provider Carissa Parker in 1-2 weeks. Again, please note the patient has made herself DNR and filled out a MOLST form. She has designated her brother to be her medical power of senior attorney. DISPOSITION: DISCHARGE CONDITION: Stable. TIME SPENT ON DISCHARGE: Greater than 40 minutes. Vital Signs/I&Os Vital Signs Date Time Temp Pulse Resp B/P (MAP) Pulse Ox O2 Delivery O2 Flow Rate FiO2 03/08/19 12:02 5.0 03/08/19 12:00 96.6 85 20 146/67 (93) 92 03/08/19 07:30 Nasal Cannula 03/06/19 04:00 95 I&O- Last 24 Hours up to 6 AM 03/08/19 06:00 Intake Total 1060 ml Output Total 1620 ml Balance -560 ml Laboratory Data Labs 24H Laboratory Tests 2 03/07/19 20:29: Bedside Glucose (Misc Panel) 228H 03/08/19 05:32: Nucleated Red Blood Cells % (auto) 0.0, Anion Gap 5L, Glomerular Filtration Rate > 60.0, Blood Urea Nitrogen 33H, Creatinine 0.85, Sodium Level 140, Potassium Level 4.0, Chloride Level 95L, Carbon Dioxide Level 40H, Calcium Level 9.4 03/08/19 11:30: Bedside Glucose (Misc Panel) 182H 03/08/19 16:58: Bedside Glucose (Misc Panel) 163H CBC/BMP Laboratory Tests 03/08/19 05:32 Red Blood Count 4.37, Mean Corpuscular Volume 87.6, Mean Corpuscular Hemoglobin 25.6 L, Mean Corpuscular Hemoglobin Concent 29.2 L, Red Cell Distribution Width 14.8 H, Calcium Level 9.4 FSBS Laboratory Tests Test 03/07/19 20:29 03/08/19 11:30 03/08/19 16:58 Range/Units Bedside Glucose (Misc Panel) 228 182 163 83-110 MG/DL Microbiology Microbiology 03/04/19 Blood Culture - Preliminary, Resulted No Growth after 72 hours. All specime... 03/04/19 Blood Culture - Preliminary, Resulted No Growth after 72 hours. All specime... Discharge Medications Scheduled Aspirin (Aspirin EC) 81 Mg Tab, 81 MG PO DAILY, (Reported) Bisoprolol Fumarate (Bisoprolol Fumarate) 5 Mg Tab, 5 MG PO DAILY, (Reported) Fluticasone Propion/Salmeterol (Advair Hfa 230-21 Mcg Inhaler) 12 Gm Hfa.aer.ad, 2 PUFF INH BID Folic Acid (Folic Acid) 1 Mg Tab, 1 MG PO DAILY, (Reported) Furosemide (Furosemide) 40 Mg Tablet, 40 MG PO BID Glipizide (Glipizide) 10 Mg Tablet, 10 MG PO DAILY, (Reported) Insulin Aspart Protamine/Aspar (Novolog Mix 70-30 Vial) 100 Unit/1 Ml Vial, 48 UNITS SC QAM, (Reported) Insulin Aspart Protamine/Aspar (Novolog Mix 70-30 Vial) 100 Unit/1 Ml Vial, 58 UNITS SC QHS, (Reported) Lisinopril (Lisinopril) 5 Mg Tab, 5 MG PO DAILY, (Reported) Metformin HCl (Metformin HCl ER) 500 Mg Tab.er.24h, 2,000 MG PO QHS, (Reported) Metoprolol Tartrate (Lopressor) 50 Mg Tablet, 50 MG PO BID Potassium Chloride (Klor-Con M10) 10 Meq Tab.er.prt, 20 MEQ PO BID Prednisone (Prednisone) 10 Mg Tablet, 10 MG PO ASDIRECTED, (Reported) TAPER DOSE STARTED 02/25/19 - 40MG DAILY FOR 3 DAYS, 30MG DAILY FOR 3 DAYS, 20MG DAILY FOR 3 DAYS, 10MG DAILY FOR 3 DAYS THEN STOP. DUE TO BEGIN 10MG DAILY FOR 3 DAYS ON 03/05/19 Simvastatin (Simvastatin) 40 Mg Tab, 40 MG PO QHS, (Reported) Sulfasalazine (Sulfasalazine Dr) 500 Mg Tablet.dr, 1,000 MG PO BID, (Reported) Umeclidinium [place] (Incruse Ellipta) 62.5 Mcg Blst.w.dev, 1 PUFF INH DAILY, (Reported) Scheduled PRN Albuterol Sulfate (Albuterol Sulfate Hfa) 8.5 Gm Hfa.aer.ad, 2 PUFF INH QID PRN for SHORTNESS OF BREATH, (Reported) Allergies Coded Allergies: No Known Drug Allergies (Verified Allergy, Unknown, 03/04/19) SHAKIRA HAJI MD Mar 08, 2019 17:49
== END 2019-03-08 18:45 | disposition home health service (06) | DRG 292 ==
LOC: EDUNIT# 10:03 → EDBD 10:03 → M ED 10:03 → M ED INP 13:03 → M PCU 14:55
PROVIDERS: ADMIT Family Medicine; ATTEND Internal Medicine
DX: I13.0 Hypertensive heart and chronic kidney disease with heart failure and stage 1 through stage 4 chronic kidney disease, or unspecified chronic kidney disease (principal); J96.11 Chronic respiratory failure with hypoxia; J96.12 Chronic respiratory failure with hypercapnia; I27.81 Cor pulmonale (chronic); J43.9 Emphysema, unspecified; I27.29 Other secondary pulmonary hypertension; E78.5 Hyperlipidemia, unspecified; N18.3 Chronic kidney disease, stage 3 (moderate); D50.9 Iron deficiency anemia, unspecified; E11.9 Type 2 diabetes mellitus without complications; M06.9 Rheumatoid arthritis, unspecified; I50.813 Acute on chronic right heart failure; Z79.82 Long term (current) use of aspirin; Z79.899 Other long term (current) drug therapy; Z79.4 Long term (current) use of insulin; Z87.891 Personal history of nicotine dependence; Z66 Do not resuscitate; G47.33 Obstructive sleep apnea (adult) (pediatric)

== ENCOUNTER → 2019-03-12 | Outpatient (REF) | payer MEDICARE ==
[~2019-03-12] MED LIST changes: +ADVA230A INH; +ALBU8.5H INH; +FURO40TA2 PO; +GLIP10TA6 PO; +INCR1INH INH; +KLOR10TA76 PO; +LOPR1TAB6 PO; +MAGN400C PO; +METF500T4 PO; +NOVO70VL SC; +PRED10TA2 PO; +SULF50TA PO
== END ==
LOC: M LAB REF 16:46
PROVIDERS: ATTEND Nurse Practitioner Adult Health
DX: M05.79 Rheumatoid arthritis with rheumatoid factor of multiple sites without organ or systems involvement (principal); Z79.899 Other long term (current) drug therapy

== ENCOUNTER 2019-04-25 15:24 | Emergency (ER) | payer MEDICARE ==
[~2019-04-25] VITALS: Ht 149.9 cm; Wt 83.6 kg
[2019-04-25] MEDS ORDERED: PERCOCET 5MG/325MG TAB PO ONE (16:15)
[2019-04-25] MEDS ORDERED: PERC5TAB12 PO (17:59)
[2019-04-25] MEDS ORDERED: COLA100C5 PO (18:23)
[2019-04-25 18:30] VITALS: BP 130/60
[2019-04-25] MEDS ORDERED: OXYCODONE/APAP 5MG/325MG(BULK FOR ED) 1 TABLET PO ONE (18:30)
--- NOTE | 2019-04-25 19:43 | REP ---
REASON: Fell and hit her head. PRIORS: None. TECHNIQUE: 4.5 mm contiguous transaxial sections were obtained from the skull base to the cerebral convexities with thin cuts through the posterior fossa without the administration of intravenous contrast. FINDINGS: The ventricles and sulci are consistent with the patient's age. There are no extra-axial fluid collections. There is no mass effect. The deep cerebral white matter is consistent with the patient's age. The orbital and petrous structures, cerebellopontine angles, and posterior fossa are unremarkable. The sella turcica, cavernous, and paracavernous structures are essentially unremarkable. The visualized portions of the paranasal sinuses and mastoid air cells are clear. Images of the skull base show no gross abnormality. IMPRESSION: Essentially unremarkable CT examination of the brain. Electronically Signed by Damion Gutierrez DO 04/26/2019 10:02 A
--- NOTE | 2019-04-25 19:57 | REP ---
REASON: Pain after trauma. COMPARISON: Preoperative examination of 09/30, standing view AP 02/26/2008. 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 There is no acute fracture or destructive osseous lesion. There is no abnormal periprosthetic loosening. IMPRESSION: No acute findings. Electronically Signed by Damion Gutierrez DO 04/26/2019 10:02 A
--- NOTE | 2019-04-25 19:58 | REP ---
REASON: Pain after trauma. There is a comminuted proximal humeral fracture. The bones are demineralized. There is no evidence of a glenohumeral dislocation. IMPRESSION:Comminuted proximal humeral fracture. Electronically Signed by Damion Gutierrez DO 04/26/2019 10:03 A
--- NOTE | 2019-04-25 20:39 | REP ---
REASON: Pain after trauma. There is a hairline fracture of the distal diaphysis of the 4th metacarpal. The bones are demineralized. Degenerative changes are seen throughout the hand. The lateral view only suggests a fracture of the distal aspect of the proximal phalanx of the third digit. Multiple views shows super imposition of osseous structures and additional fractures could not be ruled out. IMPRESSION:Fracture of the 4th metacarpal and possible fracture of the 3rd digit along with other findings as described above. Electronically Signed by Damion Gutierrez DO 04/26/2019 10:03 A
== END 2019-04-25 18:33 | disposition home or self-care (01) ==
LOC: M ED 15:24
DX: S42.292A Other displaced fracture of upper end of left humerus, initial encounter for closed fracture (principal); S62.305A Unspecified fracture of fourth metacarpal bone, left hand, initial encounter for closed fracture; T14.8XXA Other injury of unspecified body region, initial encounter; W10.1XXA Fall (on)(from) sidewalk curb, initial encounter; Y92.9 Unspecified place or not applicable; Y93.9 Activity, unspecified; Z79.01 Long term (current) use of anticoagulants; Z79.4 Long term (current) use of insulin; Z79.51 Long term (current) use of inhaled steroids; Z79.899 Other long term (current) drug therapy; Z96.652 Presence of left artificial knee joint

== ENCOUNTER → 2019-05-21 | Outpatient (CLI) | payer MEDICARE ==
[~2019-05-21] MED LIST changes: -BISO5TAB5 PO; +BISO5TAB9 PO; +COLA100C5 PO; +METF-791 PO; -METF500T4 PO; +PERC5TAB12 PO
--- NOTE | 2019-05-21 11:20 | REP ---
IAC/PETROUS BONE CT STUDY WITHOUT CONTRAST: HISTORY: Mixed conductive and sensorineural hearing loss, bilateral. Comparison head CT study April 25, 2019. No other comparison imaging. TECHNIQUE: Helical scanning is acquired and 1 mm axial images are reformatted. High resolution bone targeted axial and coronal magnified images of the petrous bones are generated. CT FINDINGS: On the right, there are a few opacified air cells in the mastoid sinus at its inferior tip. Superior and central mastoid air cells are aerated and unremarkable. The middle ear cavity is completely aerated. Middle ear ossicles are normal in appearance. No bony erosive change is seen. External auditory canal and internal auditory toward canal on the right are unremarkable. Vestibular and cochlear apparatus appear intact. On the left however, there is extensive mastoiditis with filling of nearly all of the mastoid air cells. There is partial opacification of the middle ear cavity on the left as well with soft tissue or fluid density material surrounding the middle ear ossicles. The tympanic membrane appears somewhat retracted on the left. No scutal or other bony erosive change is seen. The internal auditory canal is intact on the left side. No abnormality is noted in the vestibular or cochlear apparatus. IMPRESSION: There is evidence of bilateral mastoid air cell filling consistent with mastoiditis, left more extensive than right. There is partial opacification of the left middle ear cavity with soft tissue density or fluid surrounding the middle ear ossicles. No bony erosive change is seen. There is some retraction of the tympanic membrane on the left. Electronically Signed by Aaron Poole MD 05/21/2019 12:45 P
== END ==
LOC: M RAD 09:19
PROVIDERS: ATTEND Otolaryngology
DX: H90.6 Mixed conductive and sensorineural hearing loss, bilateral (principal)

== ENCOUNTER → 2019-09-03 | Outpatient (REF) | payer MEDICARE ==
[~2019-09-03] MED LIST changes: -SIMV40TA2 PO; +SIMV40TA20 PO
== END ==
LOC: M LAB REF 17:05
PROVIDERS: ATTEND Nurse Practitioner Adult Health
DX: E83.52 Hypercalcemia (principal); I13.0 Hypertensive heart and chronic kidney disease with heart failure and stage 1 through stage 4 chronic kidney disease, or unspecified chronic kidney disease

== ENCOUNTER → 2019-11-26 | Outpatient (REF) | payer MEDICARE ==
[~2019-11-26] MED LIST changes: +BISO5TAB14 PO; -BISO5TAB9 PO
[2019-11-29 13:28] LABS: FERRITIN 10 NG/ML (8-252); IRON (FE) 35 UG/DL (50-170)
== END ==
LOC: M LAB REF 12:53
PROVIDERS: ATTEND Nurse Practitioner Adult Health
DX: D64.9 Anemia, unspecified (principal)

== ENCOUNTER → 2019-12-14 | Outpatient (REF) | payer MEDICARE | LOC: M LAB REF 16:41 | PROVIDERS: ATTEND Nurse Practitioner Adult Health | DX: M05.79 Rheumatoid arthritis with rheumatoid factor of multiple sites without organ or systems involvement (principal) ==

== ENCOUNTER → 2020-03-07 | Outpatient (REF) | payer MEDICARE ==
[~2020-03-07] MED LIST changes: -METF-791 PO; +METF-838 PO; +SULF500T41 PO; -SULF50TA PO
== END ==
LOC: M LAB REF 16:03
PROVIDERS: ATTEND Nurse Practitioner Adult Health
DX: M05.79 Rheumatoid arthritis with rheumatoid factor of multiple sites without organ or systems involvement (principal)

== ENCOUNTER → 2021-02-22 | Outpatient (REF) | payer MEDICARE ==
[~2021-02-22] MED LIST changes: -LISI-542 PO; +LISI-898 PO
[2021-02-22 14:34] LABS: URIC ACID 7.3 MG/DL (2.6-6.0)
[2021-02-22 14:57] LABS: PTH INTACT 145.9 PG/ML (18.5-88.0)
== END ==
LOC: M LAB REF 11:14
PROVIDERS: ATTEND Nurse Practitioner Adult Health
DX: N18.31 Chronic kidney disease, stage 3a (principal)

== ENCOUNTER → 2021-03-09 | Outpatient (CLI) | payer MEDICARE ==
--- NOTE | 2021-03-09 12:51 | REP ---
INDICATION: HYPERPARATHYROIDISM. COMPARISON: None. TECHNIQUE: Real-time sonographic evaluation of thyroid performed. FINDINGS: Both lobes of the thyroid are mildly enlarged, right lobe measuring 5.1 x 2.6 x 2.5 cm and left lobe 5.5 x 1.7 x 1.9 cm. Echotexture is diffusely heterogeneous with multiple small cysts and nodules. In the right upper pole there is a predominantly cystic nodule with internal echogenic areas, 1.1 x 0.8 x 0.8 cm. In the right lower pole there is a complex cystic nodule measuring 8 x 6 x 7 mm. In the mid left lobe there is a cyst measuring 1 cm in diameter. IMPRESSION: Mild thyromegaly with diffuse heterogeneous echotexture and multiple cysts and scattered tiny subcentimeter solid appearing nodules. <Electronically signed by Kris Mac > 03/09/21 [id number]
== END ==
LOC: M RAD 11:51
PROVIDERS: ATTEND Nurse Practitioner Adult Health
DX: E21.3 Hyperparathyroidism, unspecified (principal)

== ENCOUNTER → 2021-05-03 | Outpatient (REF) | payer MEDICARE ==
[2021-05-03 18:55] LABS: MAGNESIUM LEVEL 1.8 MG/DL (1.8-2.4); PERCENT SATURATION 10.8 % (13.2-45.0); TOTAL PROTEIN 7.1 GM/DL (6.4-8.2)
== END ==
LOC: M LAB REF 17:15
PROVIDERS: ATTEND Internal Medicine Nephrology
DX: R80.9 Proteinuria, unspecified (principal); D50.9 Iron deficiency anemia, unspecified; E11.9 Type 2 diabetes mellitus without complications; E83.42 Hypomagnesemia

== ENCOUNTER 2021-05-10 10:54 | Outpatient (CLI) | payer MEDICARE ==
[~2021-05-10] VITALS: Ht 149.9 cm; Wt 81.8 kg
[~2021-05-10 10:54] MED LIST changes: +ALBUTEROL SULFATE 2.5 MG/0.5 ML INH NEB SOLN INH PRN; +EPINEPHrine INJ 1 MG/ML 1ML AMP IM PRN; +diphenhydrAMINE 50MG/ML VIAL (J1200) IV PRN; +methylPREDNISolone 125MG 2ML VIAL IV PRN
[2021-05-10 11:00] VITALS: BP 150/68
[2021-05-10] MEDS ORDERED: FERRIC CARBOXYMALTOSE INJ 750 MG, VIAL MATE ADAPTER 1 EACH in NS 250 ML IV ONE (11:30)
[2021-05-10] MEDS ORDERED: NS 1,000 ML IV SCH (11:30)
[2021-05-10] MEDS ORDERED: IRON27TA2 PO (11:41)
[2021-05-10] MEDS ORDERED: DIGO0.123 PO (11:41)
[2021-05-10] MEDS ORDERED: METF-839 PO (11:44)
[2021-05-10] MEDS ORDERED: FOLI1TAB11 PO (11:44)
[2021-05-10] MEDS ORDERED: XARE20TA PO (11:49)
[2021-05-10 12:30] VITALS: BP 149/65
[2021-05-10 13:30] VITALS: BP 140/64
[2021-05-10 15:00] VITALS: BP 174/73
== END 2021-05-10 15:00 | disposition home or self-care (01) ==
LOC: M INFU 10:54
PROVIDERS: ATTEND Internal Medicine Nephrology
DX: D50.9 Iron deficiency anemia, unspecified (principal)
CPT/HCPCS: 96365; 96366; J1439

== ENCOUNTER 2021-05-17 11:53 | Outpatient (CLI) | payer MEDICARE ==
[~2021-05-17] VITALS: Ht 149.9 cm; Wt 79.5 kg
[~2021-05-17 11:53] MED LIST changes: +DIGO0.123 PO; +IRON27TA2 PO; +METF-839 PO; +XARE20TA PO
[2021-05-17 12:05] VITALS: BP 145/63
[2021-05-17] MEDS ORDERED: NS 1,000 ML IV SCH (12:30)
[2021-05-17] MEDS ORDERED: FERRIC CARBOXYMALTOSE INJ 750 MG, VIAL MATE ADAPTER 1 EACH in NS 250 ML IV ONE (12:30)
[2021-05-17 13:25] VITALS: BP 138/62
[2021-05-17 14:45] VITALS: BP 158/67
== END 2021-05-17 14:45 | disposition home or self-care (01) ==
LOC: M INFU 11:53
PROVIDERS: ATTEND Internal Medicine Nephrology
DX: D50.9 Iron deficiency anemia, unspecified (principal)
CPT/HCPCS: 96365; 96366; J1439

== ENCOUNTER → 2021-06-22 | Outpatient (REF) | payer MEDICARE ==
[~2021-06-22] MED LIST changes: -ALBUTEROL SULFATE 2.5 MG/0.5 ML INH NEB SOLN INH PRN; -EPINEPHrine INJ 1 MG/ML 1ML AMP IM PRN; -KLOR10TA76 PO; +POTA-136 PO; -diphenhydrAMINE 50MG/ML VIAL (J1200) IV PRN; -methylPREDNISolone 125MG 2ML VIAL IV PRN
== END ==
LOC: M LAB REF 13:50
PROVIDERS: ATTEND Internal Medicine Nephrology
DX: E11.29 Type 2 diabetes mellitus with other diabetic kidney complication (principal)

== ENCOUNTER → 2021-07-19 | Outpatient (CLI) | payer MEDICARE ==
--- NOTE | 2021-07-19 09:43 | REP ---
INDICATION: EMPHYSEMA. COMPARISON: Multiple the latest portable examination of 03/04/2019 TECHNIQUE: PA and lateral FINDINGS: There is a diffuse increase in the interstitial markings throughout the lung lugo without evidence of a patchy opacity or pleural effusion. There is cardiomegaly. There is no significant change in the osseous structures. IMPRESSION: Diffusely increased interstitial markings. Chronic interstitial edema versus chronic fibrotic change or both. <Electronically signed by Damion Gutierrez > 07/19/21 [id number]
== END ==
LOC: M WUC 07:59
PROVIDERS: ATTEND Internal Medicine Pulmonary Disease
DX: J43.9 Emphysema, unspecified (principal)

== ENCOUNTER → 2021-09-12 | Outpatient (REF) | payer MEDICARE | LOC: M LAB REF 16:11 | PROVIDERS: ATTEND Nurse Practitioner Adult Health | DX: D50.9 Iron deficiency anemia, unspecified (principal) ==

== ENCOUNTER 2021-09-19 07:52 | Outpatient (CLI) | payer MEDICARE ==
[~2021-09-19] VITALS: Ht 149.9 cm; Wt 80.7 kg
[2021-09-19 08:00] VITALS: BP 133/59
[2021-09-19] MEDS ORDERED: IRON SUCROSE 475 MG in NS 250 ML IV ONE (08:00)
[2021-09-19] MEDS ORDERED: IRON SUCROSE 25 MG in NS 25 ML IV ONE (08:00)
[2021-09-19 09:30] VITALS: BP 166/74
[2021-09-19 10:00] VITALS: BP 133/60
[2021-09-19 11:00] VITALS: BP 149/67
[2021-09-19 12:45] VITALS: BP 150/76
== END 2021-09-19 12:45 | disposition home or self-care (01) ==
LOC: M INFU 07:52
PROVIDERS: ATTEND Nurse Practitioner Adult Health
DX: D50.9 Iron deficiency anemia, unspecified (principal)
CPT/HCPCS: 96365; 96366; J1756

== ENCOUNTER 2021-09-26 09:51 | Outpatient (CLI) | payer MEDICARE ==
[~2021-09-26] VITALS: Ht 149.9 cm; Wt 80.7 kg
[~2021-09-26 09:51] MED LIST changes: -LISI-898 PO; +LISI5TAB11 PO
[2021-09-26 10:00] VITALS: BP 127/57
[2021-09-26] MEDS ORDERED: IRON SUCROSE 500 MG in NS 250 ML OVER 4 HRS IV ONE (10:00)
[2021-09-26 10:45] VITALS: BP 134/59
[2021-09-26 11:45] VITALS: BP 150/67
[2021-09-26 13:27] VITALS: BP 150/64
== END 2021-09-26 13:40 | disposition home or self-care (01) ==
LOC: M INFU 09:51
PROVIDERS: ATTEND Nurse Practitioner Adult Health
DX: D50.9 Iron deficiency anemia, unspecified (principal)
CPT/HCPCS: 96374; J1756

== ENCOUNTER → 2021-10-15 | Outpatient (REF) | payer MEDICARE | LOC: M LAB REF 11:08 | PROVIDERS: ATTEND Nurse Practitioner Adult Health | DX: M05.79 Rheumatoid arthritis with rheumatoid factor of multiple sites without organ or systems involvement (principal) ==

== ENCOUNTER → 2021-10-16 | Outpatient (CLI) | payer MEDICARE | LOC: M LAB 17:12 | PROVIDERS: ATTEND Nurse Practitioner Adult Health | DX: D50.9 Iron deficiency anemia, unspecified (principal) ==

== ENCOUNTER 2021-10-17 08:49 | Outpatient (CLI) | payer MEDICARE ==
[2021-10-17] VITALS (7 sets, daily range): BP systolic 129–168; BP diastolic 58–78
[~2021-10-17] VITALS: Ht 149.9 cm; Wt 79.5 kg
[2021-10-17] MEDS ORDERED: ACETAMINOPHEN TAB 650MG DOSE (2X325MG) PO ONE (09:10)
[2021-10-17] MEDS ORDERED: diphenhydrAMINE 25MG CAP PO ONE (09:10)
== END 2021-10-17 14:35 | disposition home or self-care (01) ==
LOC: M INFU 08:49
PROVIDERS: ATTEND Nurse Practitioner Adult Health
DX: D50.9 Iron deficiency anemia, unspecified (principal)
CPT/HCPCS: 36430; P9016

== ENCOUNTER → 2021-11-12 | Outpatient (CLI) | payer MEDICARE ==
[~2021-11-12] MED LIST changes: +FAMO20TA PO; +FERR28TA PO; +HUMA75IN2 SC; +LISI2.5T9 PO; +UPAD15TA PO
== END ==
LOC: M LABSMTC 10:45
PROVIDERS: ATTEND Anesthesiology
DX: Z01.812 Encounter for preprocedural laboratory examination (principal); Z20.822 Contact with and (suspected) exposure to COVID-19

== ENCOUNTER 2021-11-16 06:33 | Day surgery (SDC) | payer MEDICARE ==
[~2021-11-16] VITALS: Ht 149.9 cm; Wt 77.1 kg
[~2021-11-16 06:33] MED LIST changes: +NS 1,000 ML IV ONE
[2021-11-16] MEDS ORDERED: LIDOCAINE 2% 100MG/5ML SDV (FOR ANES.) As Ordered ONE (07:11)
[2021-11-16] MEDS ORDERED: propofoL 200 MG/20 ML VIAL As Ordered ONE ×3 (07:11→08:20)
[2021-11-16 09:05] VITALS: BP 139/63
== END 2021-11-16 09:02 | disposition home or self-care (01) ==
LOC: M OPP 06:33
PROVIDERS: ATTEND Internal Medicine Gastroenterology
DX: Z12.11 Encounter for screening for malignant neoplasm of colon (principal); Z86.010 Personal history of colon polyps; D12.6 Benign neoplasm of colon, unspecified; K57.30 Diverticulosis of large intestine without perforation or abscess without bleeding; K55.20 Angiodysplasia of colon without hemorrhage; K64.0 First degree hemorrhoids; D50.9 Iron deficiency anemia, unspecified; I85.00 Esophageal varices without bleeding; K29.70 Gastritis, unspecified, without bleeding; I50.9 Heart failure, unspecified; J44.9 Chronic obstructive pulmonary disease, unspecified; Z87.891 Personal history of nicotine dependence; Z79.4 Long term (current) use of insulin; Z79.899 Other long term (current) drug therapy

== ENCOUNTER → 2021-12-26 | Outpatient (REF) | payer MEDICARE ==
[~2021-12-26] MED LIST changes: -NS 1,000 ML IV ONE
== END ==
LOC: M LAB REF 12:22
PROVIDERS: ATTEND Nurse Practitioner Adult Health
DX: M05.79 Rheumatoid arthritis with rheumatoid factor of multiple sites without organ or systems involvement (principal)

== ENCOUNTER → 2022-01-25 | Outpatient (REF) | payer MEDICARE | LOC: M LAB REF 12:36 | PROVIDERS: ATTEND Nurse Practitioner Adult Health | DX: D50.9 Iron deficiency anemia, unspecified (principal) ==

== ENCOUNTER → 2022-03-13 | Outpatient (CLI) | payer MEDICARE | LOC: M WUC 09:00 | PROVIDERS: ATTEND Nurse Practitioner Adult Health | DX: M79.661 Pain in right lower leg (principal) ==

== ENCOUNTER → 2022-03-27 | Outpatient (REF) | payer MEDICARE ==
[2022-03-27 16:20] LABS: ALBUMIN 3.8 GM/DL (3.2-5.2); BLOOD UREA NITROGEN 17 MG/DL (7-18); CALCIUM LEVEL 10.3 MG/DL (8.8-10.2); CARBON DIOXIDE LEVEL 27 MEQ/L (21-32); CHLORIDE LEVEL 108 MEQ/L (98-107); CREATININE FOR GFR 0.75 MG/DL (0.55-1.30); GLOMERULAR FILTRATION RATE > 60.0 (>39); GLUCOSE, FASTING 149 MG/DL (70-100); PHOSPHORUS LEVEL 2.5 MG/DL (2.5-4.9); POTASSIUM SERUM 4.2 MEQ/L (3.5-5.1); SODIUM LEVEL 139 MEQ/L (136-145)
[2022-03-29 08:33] LABS: TOTAL PROTEIN 7.6 GM/DL (6.4-8.2)
[2022-03-30 17:10] LABS: FREE KAPPA LIGHT CHAINS SERUM 43.8 mg/L (3.3-19.4); FREE LAMBDA LIGHT CHAINS SERUM 31.2 mg/L (5.7-26.3); KAPPA/LAMBDA RATIO SERUM 1.4 (0.26-1.65)
[2022-04-02 13:53] LABS: ALBUMIN % 55.6 % (55.8-66.1)
[2022-04-02 13:54] LABS: ALBUMIN 4.23 GM/DL (3.29-5.55); ALPHA-1-GLOBULIN % 4.1 % (2.9-4.9); ALPHA-1-GLOBULINS 0.31 GM/DL (0.17-0.41); ALPHA-2-GLOBULINS 0.81 GM/DL (0.42-0.99); ALPHA-2-GLOBULINS % 10.6 % (7.1-11.8); BETA-1-GLOBULINS 0.61 GM/DL (0.28-0.60); BETA-2-GLOBULINS 0.43 GM/DL (0.19-0.55); BETA-2-GLOBULINS % 5.7 % (3.2-6.5); GAMMA GLOBULINS 1.22 GM/DL (0.65-1.58)
== END ==
LOC: M LAB REF 12:57
PROVIDERS: ATTEND Nurse Practitioner Family
DX: N18.2 Chronic kidney disease, stage 2 (mild) (principal)

== ENCOUNTER 2022-04-19 15:28 | Emergency (ER) | payer MEDICARE ==
[2022-04-19 16:50] LABS: BASO % 0.5 % (0.0-1.0); EOS # 0.1 10^3/uL (0.0-0.5); EOS % 0.9 % (0.0-3.0); HEMATOCRIT 30.5 % (36.0-47.0); HEMOGLOBIN 9.3 g/dl (12.0-15.5); LYMPH # 0.8 10^3/uL (1.5-5.0); LYMPH % 10.5 % (24.0-44.0); MEAN CORPUSCULAR HEMOGLOBIN 26.7 pg (27.0-33.0); MEAN CORPUSCULAR HGB CONC 30.5 g/dl (32.0-36.5); MEAN CORPUSCULAR VOLUME 87.6 fl (80.0-96.0); MONO # 0.9 10^3/uL (0.0-0.8); MONO % 12.1 % (2.0-8.0); NEUTROPHILS # 5.8 10^3/uL (1.5-8.5); NEUTROPHILS % 75.2 % (36.0-66.0); PLATELET COUNT, AUTOMATED 161 10^3/uL (150-450); RED BLOOD COUNT 3.48 10^6/uL (4.00-5.40); WHITE BLOOD COUNT 7.7 10^3/uL (4.0-10.0)
[2022-04-19 17:11] LABS: CALCIUM LEVEL 10.3 MG/DL (8.8-10.2); CREATININE FOR GFR 0.97 MG/DL (0.55-1.30); GLOMERULAR FILTRATION RATE 59.4 (>39); POTASSIUM SERUM 4.8 MEQ/L (3.5-5.1)
[2022-04-19] MEDS ORDERED: DOXYCYCLINE HYCLATE 100MG TABLET PO ONE (20:00)
[2022-04-19] MEDS ORDERED: DOXY-443 PO (20:07)
[2022-04-19 20:20] VITALS: BP 145/67
== END 2022-04-19 20:28 | disposition home or self-care (01) ==
LOC: M ED 15:28 → EDBD 15:28 → M ED 20:28
DX: L03.115 Cellulitis of right lower limb (principal); I87.319 Chronic venous hypertension (idiopathic) with ulcer of unspecified lower extremity; R94.31 Abnormal electrocardiogram [ECG] [EKG]; E11.9 Type 2 diabetes mellitus without complications; I10 Essential (primary) hypertension; E78.5 Hyperlipidemia, unspecified; Z86.79 Personal history of other diseases of the circulatory system; Z79.51 Long term (current) use of inhaled steroids; Z79.4 Long term (current) use of insulin; Z79.811 Long term (current) use of aromatase inhibitors; Z79.899 Other long term (current) drug therapy

== ENCOUNTER → 2022-10-04 | Outpatient (REF) | payer MEDICARE ==
[~2022-10-04] MED LIST changes: +DOXY-443 PO
[2022-10-04 18:25] LABS: PERCENT SATURATION 27.6 % (13.2-45.0)
[2022-10-04 18:59] LABS: CREATININE, URINE 20.1 MG/DL; MAU/CREAT RATIO 930.3 MCG/MG (0.0-30.0)
== END ==
LOC: M LAB REF 16:53
PROVIDERS: ATTEND Nurse Practitioner Family
DX: E11.29 Type 2 diabetes mellitus with other diabetic kidney complication (principal); D50.9 Iron deficiency anemia, unspecified

== ENCOUNTER 2022-12-16 07:44 | Day surgery (SDC) | payer MEDICARE ==
[~2022-12-16] VITALS: Ht 149.9 cm; Wt 79.8 kg
[~2022-12-16 07:44] MED LIST changes: +CINA30TA4 PO; +FURO20TA2 PO; +LIDOCAINE 2% 100MG/5ML SDV (FOR ANES.) As Ordered ONE; +MIDAZOLAM INJ 2MG/2ML VIAL As Ordered ONE; +NADO40TA PO; +NADO80TA5 PO; +ONDANSETRON 4MG 2ML VIAL As Ordered ONE; +ceFAZolin SOD 2 GM in IV 1 EA IV ONE; +fentaNYL 100 MCG/2 ML INJECTION As Ordered ONE; +propofoL 200 MG/20 ML VIAL As Ordered ONE
[2022-12-16] MEDS ORDERED: INSULIN LISPRO (NovoLOG) PER UNIT SC PRN (08:05)
[2022-12-16] MEDS ORDERED: LIDOCAINE W/EPINEPHRINE 1% 20ML VIAL As Ordered ONE (09:49)
[2022-12-16] MEDS ORDERED: propofoL 200 MG/20 ML VIAL As Ordered ONE (10:22)
[2022-12-16] MEDS ORDERED: LABETALOL 100MG/20ML VIAL As Ordered ONE (13:21)
[2022-12-16 13:50] VITALS: BP 172/71
== END 2022-12-16 14:22 | disposition home or self-care (01) ==
LOC: M SDC 07:44
PROVIDERS: ATTEND Surgery
DX: C4A.62 Merkel cell carcinoma of left upper limb, including shoulder (principal); I10 Essential (primary) hypertension; E11.9 Type 2 diabetes mellitus without complications; E78.5 Hyperlipidemia, unspecified; I50.9 Heart failure, unspecified; F41.9 Anxiety disorder, unspecified; F32.A Depression, unspecified; D64.9 Anemia, unspecified; J44.9 Chronic obstructive pulmonary disease, unspecified; Z79.51 Long term (current) use of inhaled steroids; Z79.4 Long term (current) use of insulin; Z79.899 Other long term (current) drug therapy
CPT/HCPCS: 11606; 88305; J0690; J1100; J2250; J2405; J3010

== ENCOUNTER → 2022-12-19 | Outpatient (REF) | payer MEDICARE ==
[~2022-12-19] MED LIST changes: -LIDOCAINE 2% 100MG/5ML SDV (FOR ANES.) As Ordered ONE; -MIDAZOLAM INJ 2MG/2ML VIAL As Ordered ONE; -ONDANSETRON 4MG 2ML VIAL As Ordered ONE; -ceFAZolin SOD 2 GM in IV 1 EA IV ONE; -fentaNYL 100 MCG/2 ML INJECTION As Ordered ONE; -propofoL 200 MG/20 ML VIAL As Ordered ONE
== END ==
LOC: M LAB REF 12:28
PROVIDERS: ATTEND Nurse Practitioner Adult Health
DX: N18.31 Chronic kidney disease, stage 3a (principal)

== ENCOUNTER → 2023-01-08 | Outpatient (CLI) | payer MEDICARE | LOC: M ONCR 10:17 | PROVIDERS: ATTEND General Practice | DX: C4A.62 Merkel cell carcinoma of left upper limb, including shoulder (principal); E11.9 Type 2 diabetes mellitus without complications; E78.5 Hyperlipidemia, unspecified; I48.0 Paroxysmal atrial fibrillation; J44.9 Chronic obstructive pulmonary disease, unspecified; K76.0 Fatty (change of) liver, not elsewhere classified; M06.9 Rheumatoid arthritis, unspecified; Z79.4 Long term (current) use of insulin; Z79.51 Long term (current) use of inhaled steroids; Z79.52 Long term (current) use of systemic steroids; Z79.84 Long term (current) use of oral hypoglycemic drugs; Z79.899 Other long term (current) drug therapy; Z87.891 Personal history of nicotine dependence; Z99.81 Dependence on supplemental oxygen ==

== ENCOUNTER → 2023-01-30 | Outpatient (CLI) | payer MEDICARE ==
[~2023-01-30] MED LIST changes: +PROHANCE 279.3MG/ML 15ML VIAL As Ordered ONE; +PROHANCE 279.3MG/ML 5ML VIAL As Ordered ONE
== END ==
LOC: M RAD 14:37
PROVIDERS: ATTEND General Practice
DX: C4A.62 Merkel cell carcinoma of left upper limb, including shoulder (principal); G93.89 Other specified disorders of brain; G31.89 Other specified degenerative diseases of nervous system
CPT/HCPCS: 70553; A9576

== ENCOUNTER → 2023-02-03 | Outpatient (CLI) | payer MEDICARE ==
[~2023-02-03] MED LIST changes: -PROHANCE 279.3MG/ML 15ML VIAL As Ordered ONE; -PROHANCE 279.3MG/ML 5ML VIAL As Ordered ONE
== END ==
LOC: M PLARAD 13:38
PROVIDERS: ATTEND General Practice
DX: C4A.62 Merkel cell carcinoma of left upper limb, including shoulder (principal)
CPT/HCPCS: 78815; A9552

== ENCOUNTER → 2023-02-12 | Outpatient (RCR) | payer MEDICARE | LOC: M ONCR 01-16 13:41 | PROVIDERS: ATTEND General Practice | DX: C4A.62 Merkel cell carcinoma of left upper limb, including shoulder (principal) ==

== ENCOUNTER 2023-03-06 08:26 | Outpatient (RCR) | payer MEDICARE ==
[2023-03-10] MEDS ORDERED: PRED5TA (08:11)
== END 2023-03-14 ==
LOC: M ONCR 08:26
PROVIDERS: ATTEND General Practice
DX: C4A.62 Merkel cell carcinoma of left upper limb, including shoulder (principal)

== ENCOUNTER → 2023-03-10 | Outpatient (CLI) | payer MEDICARE ==
[~2023-03-10] MED LIST changes: +PRED5TA
== END ==
LOC: M ONCR 08:49
PROVIDERS: ATTEND General Practice
DX: L59.8 Other specified disorders of the skin and subcutaneous tissue related to radiation (principal)

== ENCOUNTER → 2023-03-26 | Outpatient (CLI) | payer MEDICARE | LOC: M WHC 07:24 | PROVIDERS: ATTEND General Practice | DX: C4A.62 Merkel cell carcinoma of left upper limb, including shoulder (principal) | CPT/HCPCS: 76882; 77066; G0279 ==

== ENCOUNTER → 2023-03-27 | Outpatient (REF) | payer MEDICARE ==
[2023-03-27 19:16] LABS: HEMOGLOBIN A1c 7.6 % (4.0-6.0)
== END ==
LOC: M LAB REF 17:31
PROVIDERS: ATTEND Nurse Practitioner Adult Health
DX: E11.65 Type 2 diabetes mellitus with hyperglycemia (principal)

== ENCOUNTER → 2023-05-28 | Outpatient (CLI) | payer MEDICARE ==
[~2023-05-28] MED LIST changes: +ISOVUE-370 76% 100ML VIAL As Ordered ONE
[2023-05-28 09:29] LABS: ALBUMIN 3.1 G/DL (3.2-5.2); ALKALINE PHOSPHATASE 79 U/L (46-116); ALT/SGPT 17 U/L (7.0-40); AST/SGOT 32 U/L (<34); BILIRUBIN,TOTAL 0.4 MG/DL (0.3-1.2); BLOOD UREA NITROGEN 28 MG/DL (9-23); CALCIUM LEVEL 8.7 MG/DL (8.3-10.6); CARBON DIOXIDE LEVEL 25 MMOL/L (20-31); CHLORIDE LEVEL 105 MMOL/L (98-107); CREATININE FOR GFR 0.87 MG/DL (0.55-1.30); GLOMERULAR FILTRATION RATE > 60.0 (>39); GLUCOSE, FASTING 175 MG/DL (74-106); POTASSIUM SERUM 4.4 MMOL/L (3.5-5.1); SODIUM LEVEL 141 MMOL/L (136-145); TOTAL PROTEIN 7.9 G/DL (5.7-8.2)
== END ==
LOC: M RAD 08:16
PROVIDERS: ATTEND General Practice
DX: J43.9 Emphysema, unspecified (principal); J84.9 Interstitial pulmonary disease, unspecified; K74.60 Unspecified cirrhosis of liver; R16.1 Splenomegaly, not elsewhere classified; D44.10 Neoplasm of uncertain behavior of unspecified adrenal gland
CPT/HCPCS: 36415; 71260; 80053; Q9967

== ENCOUNTER 2023-07-17 08:44 | Observation (INO) | payer MEDICARE ==
[~2023-07-17] VITALS: Ht 149.9 cm; Wt 86.4 kg
[~2023-07-17 08:44] MED LIST changes: +GLIP5TAB17 PO; -GLIP5TAB8 PO; -ISOVUE-370 76% 100ML VIAL As Ordered ONE; -NADO40TA PO; +NADO40TA6 PO
[2023-07-17] MEDS: DOCUSATE SODIUM 100MG CAPSULE PO SCH ×2 (09:00→21:00)
[2023-07-17] MEDS ORDERED: BOOSTRIX VACCINE (TETANUS/DIPHTH/ACEL. PERTUSSIS) 0.5ML SYR IM.IMMUN ONE (09:35)
[2023-07-17 09:43] LABS: BASO % 0.6 % (0.0-1.0); EOS # 0.2 10^3/uL (0.0-0.5); EOS % 3.8 % (0.0-3.0); HEMATOCRIT 32.4 % (36.0-47.0); HEMOGLOBIN 9.5 g/dl (12.0-15.5); LYMPH # 0.3 10^3/uL (1.5-5.0); LYMPH % 4.8 % (24.0-44.0); MEAN CORPUSCULAR HEMOGLOBIN 24.9 pg (27.0-33.0); MEAN CORPUSCULAR HGB CONC 29.3 g/dl (32.0-36.5); MEAN CORPUSCULAR VOLUME 84.8 fl (80.0-96.0); MONO # 0.5 10^3/uL (0.0-0.8); MONO % 10.1 % (2.0-8.0); NEUTROPHILS # 4.2 10^3/uL (1.5-8.5); NEUTROPHILS % 79.9 % (36.0-66.0); PLATELET COUNT, AUTOMATED 127 10^3/uL (150-450); RED BLOOD COUNT 3.82 10^6/uL (4.00-5.40); WHITE BLOOD COUNT 5.2 10^3/uL (4.0-10.0)
[2023-07-17] MEDS ORDERED: LISI5TAB11 (10:04)
[2023-07-17] MEDS ORDERED: FURO10EL PO (10:04)
[2023-07-17] MEDS ORDERED: SIMV40TA20 PO (10:04)
[2023-07-17 10:12] LABS: FREE T4 0.92 NG/DL (0.89-1.76); THYROID STIMULATING HORMONE 4.185 uIU/ML (0.55-4.78)
[2023-07-17 10:13] LABS: RSV AMPLIFICATION NEGATIVE (NEGATIVE)
[2023-07-17 10:15] LABS: BLOOD UREA NITROGEN 24 MG/DL (9-23); CARBON DIOXIDE LEVEL 28 MMOL/L (20-31); CHLORIDE LEVEL 106 MMOL/L (98-107); CK-MB VALUE MASS < 1.0 NG/ML (<3.6); CPK CREATINE PHOSPHOKINASE 71 U/L (34-145); CREATININE FOR GFR 0.65 MG/DL (0.55-1.30); GLOMERULAR FILTRATION RATE > 60.0 (>39); GLUCOSE, FASTING 72 MG/DL (74-106); MAGNESIUM LEVEL 1.7 MG/DL (1.8-2.4); POTASSIUM SERUM 5.1 MMOL/L (3.5-5.1); SODIUM LEVEL 142 MMOL/L (136-145)
[2023-07-17] MEDS ORDERED: MAG SULF 1GM/100ML (MAG RUN) 1 GM in IV 1 EA IV ONE (11:10)
[2023-07-17 12:22] LABS: CK-MB VALUE MASS < 1.0 NG/ML (<3.6); CPK CREATINE PHOSPHOKINASE 58 U/L (34-145); MB/CK RELATIVE INDEX 1.72 (< OR =4)
[2023-07-17] MEDS ORDERED: MED REC IN PROGRESS XX SCH (12:40)
[2023-07-17] MEDS ORDERED: MOM 30ML SUSPENSION UDC PO PRN (13:15)
[2023-07-17] MEDS ORDERED: DEXTROSE 50% 50ML SYRINGE IV PRN (13:15)
[2023-07-17] MEDS ORDERED: GLUCOSE 4GM CHEW TABLET PO PRN (13:15)
[2023-07-17] MEDS ORDERED: MAALOX 30 ML SUSP *UDC PO PRN (13:15)
[2023-07-17] MEDS ORDERED: GLUCAGON INJ 1MG VIAL SC PRN (13:15)
[2023-07-17] MEDS ORDERED: FURO40TA2 PO ×2 (13:24)
[2023-07-17] MEDS ORDERED: LISI10TA22 PO (13:24)
[2023-07-17] MEDS ORDERED: ALBUTEROL 90 MCG/ACT 8GM HFA INHALER INH PRN (13:30)
[2023-07-17] MEDS ORDERED: HOME MED LIST COMPLETE! XX SCH (13:30)
[2023-07-17] MEDS: HEPARIN SOD (PORCINE) 5000UNITS/ML 1ML VIAL/SYRINGE SC SCH ×2 (14:00→21:43)
[2023-07-17] MEDS: ACETAMINOPHEN TAB 650MG DOSE (2X325MG) PO PRN ×2 (14:00→21:40)
[2023-07-17 14:31] LABS: ALBUMIN 3.2 G/DL (3.2-5.2); ALKALINE PHOSPHATASE 72 U/L (46-116); ALT/SGPT 20 U/L (7.0-40); AST/SGOT 71 U/L (<34); BILIRUBIN,DIRECT 0.2 MG/DL (<0.4); BILIRUBIN,TOTAL 0.8 MG/DL (0.3-1.2); TOTAL PROTEIN 7.9 G/DL (5.7-8.2)
[2023-07-17 14:44] LABS: PROCALCITONIN 0.08 ng/ml
[2023-07-17] MEDS ORDERED: PILL CUTTER 1 EACH XX PRN (16:55)
[2023-07-17 17:15] VITALS: BP 157/67; TEMP 97.6; O2SAT 90
[2023-07-17 17:45] VITALS: BP 157/87; TEMP 97.6; O2SAT 90
[2023-07-17] MEDS: INSULIN LISPRO (NovoLOG) PER UNIT SC SCH (18:21)
[2023-07-17] MEDS: traMADol 50 MG TAB PO PRN (18:22)
[2023-07-17 20:30] VITALS: BP 135/80; TEMP 97.6; O2SAT 94
[2023-07-17] MEDS: ADVAIR HFA 230/21MCG INHALER INH SCH (20:48)
[2023-07-17] MEDS ORDERED: LIDOCAINE 5% (LIDODERM) PATCH TD SCH (21:00)
[2023-07-17] MEDS ORDERED: HumaLOG 75/25 MIX INSULIN PER UNIT SC SCH (21:00)
[2023-07-17] MEDS ORDERED: SIMVASTATIN 40 MG TAB PO SCH (21:00)
[2023-07-17] MEDS ORDERED: INSULIN LISPRO (NovoLOG) PER UNIT SC SCH (21:00)
[2023-07-17] MEDS ORDERED: NADOLOL 20MG TABLET PO SCH (21:00)
[2023-07-17 23:52] VITALS: BP 150/67; TEMP 97.5; O2SAT 100
[2023-07-18] MEDS: ACETAMINOPHEN TAB 650MG DOSE (2X325MG) PO PRN ×2 (01:49→15:50)
[2023-07-18 04:48] VITALS: BP 150/68; TEMP 97; O2SAT 97
[2023-07-18] MEDS: traMADol 50 MG TAB PO PRN ×2 (04:54→12:45)
[2023-07-18] MEDS: HEPARIN SOD (PORCINE) 5000UNITS/ML 1ML VIAL/SYRINGE SC SCH ×2 (05:57→14:37)
[2023-07-18 06:48] LABS: BASO % 0.3 % (0.0-1.0); EOS # 0.3 10^3/uL (0.0-0.5); EOS % 8.4 % (0.0-3.0); HEMATOCRIT 27.7 % (36.0-47.0); LYMPH # 0.4 10^3/uL (1.5-5.0); LYMPH % 14.2 % (24.0-44.0); MEAN CORPUSCULAR HEMOGLOBIN 24.7 pg (27.0-33.0); MEAN CORPUSCULAR HGB CONC 28.9 g/dl (32.0-36.5); MEAN CORPUSCULAR VOLUME 85.5 fl (80.0-96.0); MONO # 0.5 10^3/uL (0.0-0.8); MONO % 15.8 % (2.0-8.0); NEUTROPHILS # 1.9 10^3/uL (1.5-8.5); NEUTROPHILS % 61.3 % (36.0-66.0); PLATELET COUNT, AUTOMATED 101 10^3/uL (150-450); RED BLOOD COUNT 3.24 10^6/uL (4.00-5.40); WHITE BLOOD COUNT 3.1 10^3/uL (4.0-10.0)
[2023-07-18 07:23] LABS: ALBUMIN 2.8 G/DL (3.2-5.2); ALKALINE PHOSPHATASE 67 U/L (46-116); ALT/SGPT 14 U/L (7.0-40); AST/SGOT 34 U/L (<34); BILIRUBIN,TOTAL 0.5 MG/DL (0.3-1.2); BLOOD UREA NITROGEN 24 MG/DL (9-23); CALCIUM LEVEL 8.9 MG/DL (8.3-10.6); CARBON DIOXIDE LEVEL 31 MMOL/L (20-31); CHLORIDE LEVEL 104 MMOL/L (98-107); CREATININE FOR GFR 0.82 MG/DL (0.55-1.30); GLOMERULAR FILTRATION RATE > 60.0 (>39); GLUCOSE, FASTING 108 MG/DL (74-106); MAGNESIUM LEVEL 1.6 MG/DL (1.8-2.4); POTASSIUM SERUM 3.9 MMOL/L (3.5-5.1); SODIUM LEVEL 142 MMOL/L (136-145); TOTAL PROTEIN 6.9 G/DL (5.7-8.2)
[2023-07-18] MEDS: INSULIN LISPRO (NovoLOG) PER UNIT SC SCH ×3 (07:30→17:24)
[2023-07-18] MEDS: ADVAIR HFA 230/21MCG INHALER INH SCH ×2 (07:31→20:00)
[2023-07-18 08:00] VITALS: BP 131/63; TEMP 97.8; O2SAT 96
[2023-07-18] MEDS: CINACALCET 30 MG TAB (SENSIPAR) PO SCH ×2 (08:19→10:26)
[2023-07-18] MEDS: DOCUSATE SODIUM 100MG CAPSULE PO SCH ×2 (08:20→08:46)
[2023-07-18 08:22] VITALS: BP 131/63
[2023-07-18] MEDS: MAG SULF 1GM/100ML (MAG RUN) 1 GM in IV 1 EA IV SCH ×2 (08:23→08:46)
[2023-07-18 08:52] LABS: IRON (FE) 27 UG/DL (50-170); PERCENT SATURATION 6.8 % (13.2-45.0); TOTAL IRON BINDING CAPACITY 400 UG/DL (250-425)
[2023-07-18 08:54] LABS: FERRITIN 20.4 NG/ML (7.3-270.7)
[2023-07-18 08:55] LABS: FOLATE > 24.00 NG/ML (>5.4); VITAMIN B12 LEVEL 335 PG/ML (211-911)
[2023-07-18] MEDS ORDERED: FERROUS GLUCONATE 324 MG TAB PO SCH (09:00)
[2023-07-18] MEDS ORDERED: FOLIC ACID 1MG TAB PO SCH (09:00)
[2023-07-18] MEDS ORDERED: HumaLOG 75/25 MIX INSULIN PER UNIT SC SCH (09:00)
[2023-07-18] MEDS ORDERED: NADOLOL 20MG TABLET PO SCH (09:00)
[2023-07-18] MEDS ORDERED: MAGNESIUM OXIDE 400MG TAB (MAG-OX) PO ONE (09:00)
[2023-07-18] MEDS ORDERED: FAMOTIDINE 20 MG TAB PO SCH (09:00)
[2023-07-18] MEDS ORDERED: POTASSIUM CHLORIDE 10MEQ SR TABLET PO ONE (09:00)
[2023-07-18] MEDS ORDERED: FUROSEMIDE 80 MG TAB PO SCH (09:00)
[2023-07-18] MEDS ORDERED: FUROSEMIDE 40MG/4ML VIAL IV SCH ×3 (09:00→17:00)
[2023-07-18] MEDS ORDERED: ISOVUE-370 76% 100ML VIAL As Ordered ONE (09:33)
[2023-07-18 11:32] LABS: BASO % 0.9 % (0.0-1.0); EOS # 0.3 10^3/uL (0.0-0.5); EOS % 7.8 % (0.0-3.0); HEMATOCRIT 28.3 % (36.0-47.0); HEMOGLOBIN 8.4 g/dl (12.0-15.5); LYMPH # 0.5 10^3/uL (1.5-5.0); LYMPH % 14.9 % (24.0-44.0); MEAN CORPUSCULAR HEMOGLOBIN 25.4 pg (27.0-33.0); MEAN CORPUSCULAR HGB CONC 29.7 g/dl (32.0-36.5); MEAN CORPUSCULAR VOLUME 85.5 fl (80.0-96.0); MONO # 0.6 10^3/uL (0.0-0.8); MONO % 18.3 % (2.0-8.0); NEUTROPHILS # 1.9 10^3/uL (1.5-8.5); NEUTROPHILS % 57.8 % (36.0-66.0); PLATELET COUNT, AUTOMATED 102 10^3/uL (150-450); RED BLOOD COUNT 3.31 10^6/uL (4.00-5.40); WHITE BLOOD COUNT 3.2 10^3/uL (4.0-10.0)
[2023-07-18 11:45] VITALS: BP 161/69; TEMP 97; O2SAT 99
[2023-07-18] MEDS ORDERED: FUROSEMIDE 40 MG TAB PO SCH ×2 (12:00)
[2023-07-18 15:30] VITALS: BP_SYST 130; BP_SYST 141; BP_DIAS 63; BP_DIAS 64; TEMP 97.6; O2SAT 98
[2023-07-18] MEDS ORDERED: traMADol 50 MG TAB PO PRN (15:40)
[2023-07-18 17:28] LABS: HEMATOCRIT 28.3 % (36.0-47.0); HEMOGLOBIN 8.4 g/dl (12.0-15.5)
[2023-07-18] MEDS ORDERED: TRAM50TA2 PO (18:46)
[2023-07-19] MEDS ORDERED: FUROSEMIDE 80 MG TAB PO SCH (09:00)
== END 2023-07-18 19:30 | disposition home or self-care (01) ==
LOC: EDBD 08:44 → M ED 08:44 → M ED INP 13:11 → ENRESERV 15:26 → M PCU 17:10
PROVIDERS: ADMIT Internal Medicine; ATTEND Internal Medicine
DX: R55 Syncope and collapse (principal); R53.81 Other malaise; I27.0 Primary pulmonary hypertension; J84.170 Interstitial lung disease with progressive fibrotic phenotype in diseases classified elsewhere; S05.11XA Contusion of eyeball and orbital tissues, right eye, initial encounter; W19.XXXA Unspecified fall, initial encounter; Y92.89 Other specified places as the place of occurrence of the external cause; D64.9 Anemia, unspecified; E83.42 Hypomagnesemia; I10 Essential (primary) hypertension; C4A.9 Merkel cell carcinoma, unspecified; J44.9 Chronic obstructive pulmonary disease, unspecified; J96.11 Chronic respiratory failure with hypoxia; E78.5 Hyperlipidemia, unspecified; E11.9 Type 2 diabetes mellitus without complications; K21.9 Gastro-esophageal reflux disease without esophagitis; Z92.3 Personal history of irradiation; Z99.81 Dependence on supplemental oxygen; Z79.899 Other long term (current) drug therapy; Z79.4 Long term (current) use of insulin; Z79.84 Long term (current) use of oral hypoglycemic drugs
CPT/HCPCS: 36415; 70450; 71045; 71100; 71275; 72125; 80048; 80053; 80076; 82550; 82553; 82607; 82728; 82746; 83550; 83735; 84145; 84439; 84443; 84466; 84484; 85014; 85018; 85025; 85046; 87631; 90471; 90715; 93005; 93041; 93306; 94640; 94760; 96360; 96372; 97116; 97161; 97165; 97535; 99285; G0378; J1815; J3475; Q9967

== ENCOUNTER → 2023-07-22 | Outpatient (REF) | payer MEDICARE ==
[~2023-07-22] MED LIST changes: +FURO10EL PO; +LISI10TA22 PO; +LISI5TAB11; +TRAM50TA2 PO
== END ==
LOC: M LAB REF 09:44
PROVIDERS: ATTEND Nurse Practitioner Adult Health
DX: I48.0 Paroxysmal atrial fibrillation (principal); N25.81 Secondary hyperparathyroidism of renal origin

== ENCOUNTER → 2023-07-24 | Outpatient (CLI) | payer MEDICARE | LOC: M EKG 08:01 | PROVIDERS: ATTEND Nurse Practitioner Adult Health | DX: R55 Syncope and collapse (principal) ==

== ENCOUNTER 2023-08-07 08:28 | Emergency (ER) | payer MEDICARE ==
[~2023-08-07] VITALS: Ht 149.9 cm; Wt 85.0 kg
[2023-08-07] MEDS ORDERED: NS 1,000 ML IV SCH (08:55)
[2023-08-07] MEDS ORDERED: ONDANSETRON 4MG 2ML VIAL IV ONE ×2 (08:55→11:45)
[2023-08-07 09:22] LABS: BASO % 0.4 % (0.0-1.0); EOS # 0.2 10^3/uL (0.0-0.5); EOS % 3.4 % (0.0-3.0); HEMATOCRIT 29.7 % (36.0-47.0); HEMOGLOBIN 8.8 g/dl (12.0-15.5); LYMPH # 0.2 10^3/uL (1.5-5.0); LYMPH % 4.1 % (24.0-44.0); MEAN CORPUSCULAR HEMOGLOBIN 25.6 pg (27.0-33.0); MEAN CORPUSCULAR HGB CONC 29.6 g/dl (32.0-36.5); MEAN CORPUSCULAR VOLUME 86.3 fl (80.0-96.0); MONO # 0.7 10^3/uL (0.0-0.8); MONO % 12.6 % (2.0-8.0); NEUTROPHILS # 4.4 10^3/uL (1.5-8.5); NEUTROPHILS % 79.1 % (36.0-66.0); PLATELET COUNT, AUTOMATED 123 10^3/uL (150-450); RED BLOOD COUNT 3.44 10^6/uL (4.00-5.40); WHITE BLOOD COUNT 5.6 10^3/uL (4.0-10.0)
[2023-08-07 09:47] LABS: LIPASE 66 U/L (12-53)
[2023-08-07 09:49] LABS: ALBUMIN 3.2 G/DL (3.2-5.2); ALKALINE PHOSPHATASE 101 U/L (46-116); ALT/SGPT 25 U/L (7.0-40); AST/SGOT 58 U/L (<34); BILIRUBIN,DIRECT 0.1 MG/DL (<0.4); BILIRUBIN,TOTAL 0.4 MG/DL (0.3-1.2); BLOOD UREA NITROGEN 32 MG/DL (9-23); CALCIUM LEVEL 8.5 MG/DL (8.3-10.6); CARBON DIOXIDE LEVEL 26 MMOL/L (20-31); CHLORIDE LEVEL 108 MMOL/L (98-107); CREATININE FOR GFR 0.82 MG/DL (0.55-1.30); GLOMERULAR FILTRATION RATE > 60.0 (>39); GLUCOSE, FASTING 81 MG/DL (74-106); POTASSIUM SERUM 4.6 MMOL/L (3.5-5.1); SODIUM LEVEL 142 MMOL/L (136-145); TOTAL PROTEIN 7.4 G/DL (5.7-8.2)
[2023-08-07] MEDS ORDERED: ISOVUE-370 76% 100ML VIAL As Ordered ONE (10:09)
[2023-08-07 13:46] VITALS: BP 165/70; TEMP 97; O2SAT 96
== END 2023-08-07 14:22 | disposition home or self-care (01) ==
LOC: EDBD 08:28 → M ED 08:28
DX: R11.10 Vomiting, unspecified (principal); R74.8 Abnormal levels of other serum enzymes; E11.9 Type 2 diabetes mellitus without complications; I10 Essential (primary) hypertension; J44.9 Chronic obstructive pulmonary disease, unspecified; Z87.891 Personal history of nicotine dependence
CPT/HCPCS: 74177; 80048; 80076; 83605; 83690; 85025; 87040; 93005; 93041; 96361; 96374; 96376; 99285; J2405; Q9967

== ENCOUNTER → 2023-08-13 | Outpatient (REF) | payer MEDICARE ==
[2023-08-13 19:22] LABS: IRON (FE) 49 UG/DL (50-170); PERCENT SATURATION 11.2 % (13.2-45.0); TOTAL IRON BINDING CAPACITY 436 UG/DL (250-425)
[2023-08-13 19:24] LABS: FERRITIN 27.8 NG/ML (7.3-270.7); THYROGLOBULIN ANTIBODY < 15.0 U/ML (<60.0); THYROID PEROXIDASE ANTIBODY < 28.0 U/ML (<60.0)
== END ==
LOC: M LAB REF 16:31
PROVIDERS: ATTEND Nurse Practitioner Adult Health
DX: D50.9 Iron deficiency anemia, unspecified (principal); E03.9 Hypothyroidism, unspecified

== ENCOUNTER → 2023-08-21 | Outpatient (CLI) | payer MEDICARE | LOC: M PLAIMG 09:52 | PROVIDERS: ATTEND Nurse Practitioner Adult Health | DX: R55 Syncope and collapse (principal) ==

== ENCOUNTER 2023-08-26 11:58 | Inpatient (IN) | payer MEDICARE ==
[~2023-08-26] VITALS: Ht 149.9 cm; Wt 86.9 kg
[2023-08-26] MEDS: METOPROLOL 5 MG/5 ML VIAL IV PRN ×3 (12:36→13:05)
[2023-08-26 12:46] LABS: BASO % 0.6 % (0.0-1.0); EOS # 0.2 10^3/uL (0.0-0.5); EOS % 4.7 % (0.0-3.0); HEMATOCRIT 34.7 % (36.0-47.0); HEMOGLOBIN 10.3 g/dl (12.0-15.5); LYMPH # 0.7 10^3/uL (1.5-5.0); LYMPH % 14.2 % (24.0-44.0); MEAN CORPUSCULAR HEMOGLOBIN 25.4 pg (27.0-33.0); MEAN CORPUSCULAR HGB CONC 29.7 g/dl (32.0-36.5); MEAN CORPUSCULAR VOLUME 85.5 fl (80.0-96.0); MONO # 0.9 10^3/uL (0.0-0.8); MONO % 17.9 % (2.0-8.0); NEUTROPHILS % 62.4 % (36.0-66.0); PLATELET COUNT, AUTOMATED 144 10^3/uL (150-450); RED BLOOD COUNT 4.06 10^6/uL (4.00-5.40); WHITE BLOOD COUNT 4.9 10^3/uL (4.0-10.0)
[2023-08-26 12:58] LABS: INR 1.18; PROTHROMBIN TIME 14.6 SECONDS (12.5-14.5)
[2023-08-26 13:00] LABS: PARTIAL THROMBOPLASTIN TIME 56.5 SECONDS (24.8-34.2)
[2023-08-26 13:18] LABS: LIPASE 76 U/L (12-53)
[2023-08-26 13:20] LABS: CPK CREATINE PHOSPHOKINASE 55 U/L (34-145)
[2023-08-26 13:21] LABS: ALBUMIN 3.5 G/DL (3.2-5.2); ALKALINE PHOSPHATASE 92 U/L (46-116); ALT/SGPT 22 U/L (7.0-40); AST/SGOT 35 U/L (<34); BILIRUBIN,DIRECT 0.1 MG/DL (<0.4); BILIRUBIN,TOTAL 0.4 MG/DL (0.3-1.2); BLOOD UREA NITROGEN 34 MG/DL (9-23); CALCIUM LEVEL 9.5 MG/DL (8.3-10.6); CARBON DIOXIDE LEVEL 28 MMOL/L (20-31); CHLORIDE LEVEL 103 MMOL/L (98-107); CK-MB VALUE MASS < 1.0 NG/ML (<3.6); CREATININE FOR GFR 0.98 MG/DL (0.55-1.30); GLOMERULAR FILTRATION RATE 58.6 (>39); GLUCOSE, FASTING 55 MG/DL (74-106); MB/CK RELATIVE INDEX 1.81 (< OR =4); POTASSIUM SERUM 4.3 MMOL/L (3.5-5.1); SODIUM LEVEL 140 MMOL/L (136-145); TOTAL PROTEIN 8.3 G/DL (5.7-8.2)
[2023-08-26 13:24] LABS: FREE T4 0.98 NG/DL (0.89-1.76); THYROID STIMULATING HORMONE 6.912 uIU/ML (0.55-4.78)
[2023-08-26] MEDS ORDERED: FUROSEMIDE 40MG/4ML VIAL IV ONE (13:30)
[2023-08-26] MEDS ORDERED: MAG SULF 1GM/100ML (MAG RUN) 1 GM in IV 1 EA IV ONE (13:35)
[2023-08-26 13:40] LABS: RSV AMPLIFICATION NEGATIVE (NEGATIVE)
[2023-08-26] MEDS ORDERED: NADOLOL 20MG TABLET PO STA (13:58)
[2023-08-26 14:22] LABS: CK-MB VALUE MASS 1.1 NG/ML (<3.6)
[2023-08-26 14:24] LABS: MB/CK RELATIVE INDEX 2.29 (< OR =4)
[2023-08-26] MEDS ORDERED: ISOVUE-370 76% 100ML VIAL As Ordered ONE (14:35)
[2023-08-26] MEDS ORDERED: MED REC IN PROGRESS XX SCH (15:45)
[2023-08-26] MEDS ORDERED: ADVA230A INH (16:08)
[2023-08-26] MEDS ORDERED: HOME MED LIST COMPLETE! XX SCH (16:15)
[2023-08-26] MEDS ORDERED: GLUCOSE 4GM CHEW TABLET PO PRN (16:40)
[2023-08-26] MEDS ORDERED: DEXTROSE 50% 50ML SYRINGE IV PRN (16:40)
[2023-08-26] MEDS ORDERED: LEVALBUTEROL 1.25MG 0.5ML CONCENTRATE NEB INH PRN (16:40)
[2023-08-26] MEDS ORDERED: GLUCAGON INJ 1MG VIAL SC PRN (16:40)
[2023-08-26] MEDS ORDERED: ACETAMINOPHEN TAB 650MG DOSE (2X325MG) PO PRN (16:45)
[2023-08-26] MEDS: ENOXAPARIN 100MG/1ML SYRINGE (J1650 PER 10MG) SC SCH (17:30)
[2023-08-26] MEDS: MAG SULF 1GM/100ML (MAG RUN) 1 GM in IV 1 EA IV SCH ×3 (17:30→19:23)
[2023-08-26] MEDS: METOPROLOL TART 25 MG TABLET PO SCH (17:30)
[2023-08-26] MEDS: INSULIN LISPRO (NovoLOG) PER UNIT SC SCH (17:30)
[2023-08-26] MEDS: ADVAIR HFA 230/21MCG INHALER INH SCH (20:00)
[2023-08-26] MEDS ORDERED: INSULIN LISPRO (NovoLOG) PER UNIT SC SCH (21:00)
[2023-08-26] MEDS ORDERED: SIMVASTATIN 40 MG TAB PO SCH (21:00)
[2023-08-27 01:06] VITALS: BP 138/61; TEMP 97.8; O2SAT 96
[2023-08-27] MEDS: METOPROLOL TART 25 MG TABLET PO SCH ×2 (01:35→06:01)
[2023-08-27 03:40] VITALS: BP 132/63; TEMP 97.9; O2SAT 97
[2023-08-27 06:01] VITALS: BP 132/63
[2023-08-27] MEDS: ENOXAPARIN 100MG/1ML SYRINGE (J1650 PER 10MG) SC SCH (06:01)
[2023-08-27 06:25] LABS: BASO % 0.8 % (0.0-1.0); EOS # 0.2 10^3/uL (0.0-0.5); EOS % 4.5 % (0.0-3.0); HEMATOCRIT 28.8 % (36.0-47.0); HEMOGLOBIN 8.6 g/dl (12.0-15.5); LYMPH # 0.5 10^3/uL (1.5-5.0); MEAN CORPUSCULAR HEMOGLOBIN 25.6 pg (27.0-33.0); MEAN CORPUSCULAR HGB CONC 29.9 g/dl (32.0-36.5); MEAN CORPUSCULAR VOLUME 85.7 fl (80.0-96.0); MONO # 0.6 10^3/uL (0.0-0.8); NEUTROPHILS # 2.3 10^3/uL (1.5-8.5); NEUTROPHILS % 63.1 % (36.0-66.0); PLATELET COUNT, AUTOMATED 107 10^3/uL (150-450); RED BLOOD COUNT 3.36 10^6/uL (4.00-5.40); WHITE BLOOD COUNT 3.6 10^3/uL (4.0-10.0)
[2023-08-27 06:54] LABS: BLOOD UREA NITROGEN 36 MG/DL (9-23); CALCIUM LEVEL 8.7 MG/DL (8.3-10.6); CARBON DIOXIDE LEVEL 26 MMOL/L (20-31); CHLORIDE LEVEL 101 MMOL/L (98-107); CREATININE FOR GFR 0.95 MG/DL (0.55-1.30); GLOMERULAR FILTRATION RATE > 60.0 (>39); GLUCOSE, FASTING 254 MG/DL (74-106); MAGNESIUM LEVEL 2.4 MG/DL (1.8-2.4); POTASSIUM SERUM 4.2 MMOL/L (3.5-5.1); SODIUM LEVEL 136 MMOL/L (136-145)
[2023-08-27] MEDS: ADVAIR HFA 230/21MCG INHALER INH SCH (07:53)
[2023-08-27 07:59] VITALS: BP 143/66; TEMP 97.4; O2SAT 96
[2023-08-27] MEDS ORDERED: TIOTROPIUM INHALER/CAPSULE (SPIRIVA) INH SCH (08:00)
[2023-08-27] MEDS ORDERED: ELIQ5TAB PO (08:23)
[2023-08-27] MEDS ORDERED: FAMOTIDINE 20 MG TAB PO SCH (09:00)
[2023-08-27] MEDS ORDERED: CINACALCET 30 MG TAB (SENSIPAR) PO SCH (09:00)
[2023-08-27] MEDS ORDERED: FOLIC ACID 1MG TAB PO SCH (09:00)
[2023-08-27] MEDS ORDERED: ENOXAPARIN 40MG/0.4ML SYRINGE (J1650 PER 10MG) SC SCH (09:00)
[2023-08-27] MEDS ORDERED: FUROSEMIDE 40 MG TAB PO SCH (09:00)
[2023-08-27] MEDS: INSULIN LISPRO (NovoLOG) PER UNIT SC SCH (09:55)
[2023-08-27] MEDS ORDERED: INSU100V6 SQ (10:45)
[2023-08-27] MEDS ORDERED: ACET1TAB55 PO (10:45)
[2023-08-27] MEDS ORDERED: METO1TAB87 PO (10:45)
[2023-08-27] MEDS ORDERED: HUMA75IN2 SC (11:28)
[2023-08-27] MEDS ORDERED: METO50TA7 PO (11:28)
[2023-08-27] MEDS ORDERED: METF-838 PO (11:32)
== END 2023-08-27 13:35 | disposition home or self-care (01) | DRG 309 ==
LOC: M ED 11:58 → EDBD 11:58 → M ED INP 16:27 → ENRESERV 21:48 → M PCU 08-27 01:00
PROVIDERS: ADMIT Internal Medicine; ATTEND Internal Medicine
DX: I48.91 Unspecified atrial fibrillation (principal); K76.6 Portal hypertension; I85.10 Secondary esophageal varices without bleeding; J84.9 Interstitial pulmonary disease, unspecified; J96.11 Chronic respiratory failure with hypoxia; I50.32 Chronic diastolic (congestive) heart failure; K21.9 Gastro-esophageal reflux disease without esophagitis; E11.649 Type 2 diabetes mellitus with hypoglycemia without coma; I11.0 Hypertensive heart disease with heart failure; I27.20 Pulmonary hypertension, unspecified; Z92.3 Personal history of irradiation; J43.9 Emphysema, unspecified; D63.8 Anemia in other chronic diseases classified elsewhere; Z79.899 Other long term (current) drug therapy; Z79.4 Long term (current) use of insulin; Z99.81 Dependence on supplemental oxygen; Z96.653 Presence of artificial knee joint, bilateral; Z98.41 Cataract extraction status, right eye; Z98.42 Cataract extraction status, left eye; Z87.891 Personal history of nicotine dependence

== ENCOUNTER 2023-10-09 15:03 | Outpatient (CLI) | payer MEDICARE ==
[~2023-10-09] VITALS: Ht 149.9 cm; Wt 86.0 kg
[~2023-10-09 15:03] MED LIST changes: +ACET1TAB55 PO; +ELIQ5TAB PO; +INSU100V6 SQ; +METO1TAB87 PO; +METO50TA7 PO
[2023-10-09 15:20] VITALS: BP 186/72; O2SAT 91
[2023-10-09] MEDS: MAG SULF 1GM/100ML (MAG RUN) IV SCH ×4 (15:32→16:34)
== END 2023-10-09 18:04 | disposition home or self-care (01) ==
LOC: M INFU 15:03
PROVIDERS: ATTEND Physician Assistant Medical
DX: E83.42 Hypomagnesemia (principal)
CPT/HCPCS: 96365; 96366; J3475

== ENCOUNTER 2023-11-03 12:17 | Day surgery (SDC) | payer MEDICARE ==
[~2023-11-03] VITALS: Ht 149.9 cm; Wt 85.2 kg
[~2023-11-03 12:17] MED LIST changes: -ASPI-161 PO; +ASPI-615 PO; +MAGN64TASA PO
[2023-11-03] MEDS: NS 1,000 ML IV ONE (13:10)
[2023-11-03] MEDS ORDERED: propofoL 200 MG/20 ML VIAL As Ordered ONE (14:17)
[2023-11-03] MEDS ORDERED: LIDOCAINE 2% 100MG/5ML SDV (FOR ANES.) As Ordered ONE (14:17)
[2023-11-03] MEDS ORDERED: fentaNYL 100 MCG/2 ML INJECTION As Ordered ONE (14:17)
[2023-11-03] MEDS ORDERED: SIMETHICONE 40MG/0.6ML DROPS 30ML As Ordered ONE (14:18)
[2023-11-03 15:10] VITALS: BP 180/82; TEMP 96.6; O2SAT 98
== END 2023-11-03 15:05 | disposition home or self-care (01) ==
LOC: M OPP 12:17
PROVIDERS: ATTEND Internal Medicine Gastroenterology
DX: I85.00 Esophageal varices without bleeding (principal); Z87.891 Personal history of nicotine dependence; I50.9 Heart failure, unspecified; E11.9 Type 2 diabetes mellitus without complications; G47.9 Sleep disorder, unspecified; Z79.01 Long term (current) use of anticoagulants; Z79.02 Long term (current) use of antithrombotics/antiplatelets; Z79.4 Long term (current) use of insulin; Z79.51 Long term (current) use of inhaled steroids; Z79.899 Other long term (current) drug therapy
CPT/HCPCS: 43205; J3010

== ENCOUNTER 2024-01-05 06:49 | Day surgery (SDC) | payer OTHER ==
[~2024-01-05] VITALS: Ht 149.9 cm; Wt 86.2 kg
[~2024-01-05 06:49] MED LIST changes: +CINA30TA5 PO; +FAMO1TAB11 PO
[2024-01-05] MEDS ORDERED: LIDOCAINE 2% 100MG/5ML SDV (FOR ANES.) As Ordered ONE (07:05)
[2024-01-05] MEDS ORDERED: propofoL 200 MG/20 ML VIAL As Ordered ONE (07:05)
[2024-01-05] MEDS ORDERED: fentaNYL 100 MCG/2 ML INJECTION As Ordered ONE (07:09)
[2024-01-05] MEDS: NS 1,000 ML IV ONE (07:18)
[2024-01-05 08:03] VITALS: TEMP 97.9
[2024-01-05 08:20] VITALS: BP 171/73; O2SAT 97
== END 2024-01-05 08:30 | disposition home or self-care (01) ==
LOC: M OPP 06:49
PROVIDERS: ATTEND Internal Medicine Gastroenterology
DX: I85.00 Esophageal varices without bleeding (principal); I50.9 Heart failure, unspecified; E11.9 Type 2 diabetes mellitus without complications; I48.91 Unspecified atrial fibrillation; J44.9 Chronic obstructive pulmonary disease, unspecified; I11.0 Hypertensive heart disease with heart failure; Z79.01 Long term (current) use of anticoagulants; Z79.02 Long term (current) use of antithrombotics/antiplatelets; Z79.4 Long term (current) use of insulin; Z79.51 Long term (current) use of inhaled steroids; Z79.899 Other long term (current) drug therapy; Z87.891 Personal history of nicotine dependence
CPT/HCPCS: 43244; J3010

== ENCOUNTER → 2024-03-03 | Outpatient (CLI) | payer OTHER ==
[~2024-03-03] MED LIST changes: +DOXY-323 PO; -DOXY-443 PO; +GASTROGRAFIN SOLUTION 30ML As Ordered ONE; +ISOVUE-370 76% 100ML VIAL As Ordered ONE
== END ==
LOC: M RAD 08:52
PROVIDERS: ATTEND General Practice
DX: C4A.62 Merkel cell carcinoma of left upper limb, including shoulder (principal)
CPT/HCPCS: 71260; 74177; Q9963; Q9967

== ENCOUNTER → 2024-03-12 | Outpatient (CLI) | payer OTHER ==
[~2024-03-12] MED LIST changes: -GASTROGRAFIN SOLUTION 30ML As Ordered ONE; -ISOVUE-370 76% 100ML VIAL As Ordered ONE
== END ==
LOC: M ONCR 08:58
PROVIDERS: ATTEND General Practice
DX: C4A.62 Merkel cell carcinoma of left upper limb, including shoulder (principal); C77.3 Secondary and unspecified malignant neoplasm of axilla and upper limb lymph nodes; J44.9 Chronic obstructive pulmonary disease, unspecified; Z79.01 Long term (current) use of anticoagulants; Z79.4 Long term (current) use of insulin; Z79.84 Long term (current) use of oral hypoglycemic drugs; Z79.899 Other long term (current) drug therapy; Z87.891 Personal history of nicotine dependence; Z99.81 Dependence on supplemental oxygen; Z92.3 Personal history of irradiation

== ENCOUNTER → 2024-03-15 | Outpatient (CLI) | payer OTHER ==
[2024-03-15 16:53] LABS: ALBUMIN 3.3 G/DL (3.2-5.2); CALCIUM LEVEL 7.9 MG/DL (8.3-10.6); CREATININE FOR GFR 0.99 MG/DL (0.55-1.30); GLOMERULAR FILTRATION RATE 57.8 (>39); MAGNESIUM LEVEL 1.5 MG/DL (1.8-2.4); PHOSPHORUS LEVEL 5.8 MG/DL (2.4-5.1)
== END ==
LOC: M WUC 09:59
PROVIDERS: ATTEND Nurse Practitioner Family
DX: N18.2 Chronic kidney disease, stage 2 (mild) (principal); E83.42 Hypomagnesemia

== ENCOUNTER → 2024-03-24 | Outpatient (CLI) | payer OTHER ==
[2024-03-24 10:35] LABS: ALBUMIN 3.1 G/DL (3.2-5.2); CALCIUM LEVEL 8.2 MG/DL (8.3-10.6); CREATININE FOR GFR 1.14 MG/DL (0.55-1.30); GLOMERULAR FILTRATION RATE 49.1 (>39); MAGNESIUM LEVEL 1.3 MG/DL (1.8-2.4); PHOSPHORUS LEVEL 3.6 MG/DL (2.4-5.1); POTASSIUM SERUM 4.8 MMOL/L (3.5-5.1)
== END ==
LOC: M LAB 09:19
PROVIDERS: ATTEND Nurse Practitioner Family
DX: N18.31 Chronic kidney disease, stage 3a (principal); E83.42 Hypomagnesemia

== ENCOUNTER → 2024-03-26 | Outpatient (REF) | payer OTHER ==
[2024-03-26 18:18] LABS: MAGNESIUM URINE RANDOM 2.5 MG/DL
[2024-03-26 18:19] LABS: CREATININE,RANDOM URINE 141.2 MG/DL
== END ==
LOC: M LAB REF 16:58
PROVIDERS: ATTEND Nurse Practitioner Family
DX: N18.31 Chronic kidney disease, stage 3a (principal); E83.42 Hypomagnesemia

== ENCOUNTER 2024-04-19 06:47 | Inpatient (IN) | payer OTHER ==
[2024-04-19 07:49] LABS: HEMATOCRIT 36.4 % (36.0-47.0); HEMOGLOBIN 10.9 g/dl (12.0-15.5); MEAN CORPUSCULAR HEMOGLOBIN 24.4 pg (27.0-33.0); MEAN CORPUSCULAR HGB CONC 29.9 g/dl (32.0-36.5); MEAN CORPUSCULAR VOLUME 81.4 fl (80.0-96.0); PLATELET COUNT, AUTOMATED 126 10^3/uL (150-450); RED BLOOD COUNT 4.47 10^6/uL (4.00-5.40); WHITE BLOOD COUNT 5.4 10^3/uL (4.0-10.0)
[2024-04-19 08:03] LABS: INR 1.22; PARTIAL THROMBOPLASTIN TIME 64.6 SECONDS (24.8-34.2); PROTHROMBIN TIME 15.1 SECONDS (12.5-14.5)
[2024-04-19] MEDS ORDERED: fentaNYL 100 MCG/2 ML INJECTION As Ordered ONE (08:20)
[2024-04-19] MEDS ORDERED: MIDAZOLAM INJ 2MG/2ML VIAL As Ordered ONE (08:20)
[2024-04-19] MEDS ORDERED: LIDOCAINE 1% MDV 20ML VIAL As Ordered ONE (08:20)
[2024-04-19] MEDS ORDERED: METO25TA PO (08:31)
[2024-04-19] MEDS ORDERED: METO50TA7 PO (08:31)
[2024-04-19] MEDS ORDERED: HUMA75IN2 SC (08:31)
[2024-04-19] MEDS ORDERED: ELIQ5TAB PO (08:31)
[2024-04-19] MEDS ORDERED: AMIL5TAB4 PO (08:31)
[2024-04-19] MEDS ORDERED: ALBU2.5V10 INH (08:31)
[2024-04-19] MEDS ORDERED: HOME MED LIST COMPLETE! XX SCH (08:50)
[2024-04-19] MEDS ORDERED: aMILoride 5 MG TAB PO SCH (09:00)
[2024-04-19] MEDS ORDERED: FAMOTIDINE 20 MG TAB PO SCH (09:00)
[2024-04-19] MEDS ORDERED: ACETAMINOPHEN 325 MG TAB As Ordered ONE (12:15)
[2024-04-19] MEDS: ACETAMINOPHEN TAB 650MG DOSE (2X325MG) PO ONE (12:15)
[2024-04-19] MEDS ORDERED: ALBUTEROL SULFATE 2.5MG/0.5ML INH NEB SOLN INH PRN (15:00)
[2024-04-19] MEDS ORDERED: ADVAIR HFA 230/21MCG INHALER INH PRN (15:00)
[2024-04-19 15:05] VITALS: BP 126/57; TEMP 97.4; O2SAT 96
[2024-04-19] MEDS ORDERED: DEXTROSE 50% 50ML SYRINGE IV PRN (15:05)
[2024-04-19] MEDS ORDERED: GLUCAGON INJ 1MG VIAL SC PRN (15:05)
[2024-04-19] MEDS ORDERED: GLUCOSE 4 GM CHEW PO PRN (15:05)
[2024-04-19] MEDS: FUROSEMIDE 40 MG TAB PO SCH (15:23)
[2024-04-19] MEDS: FOLIC ACID 1MG TAB PO SCH (15:24)
[2024-04-19 16:24] LABS: HEMATOCRIT 29.1 % (36.0-47.0); MEAN CORPUSCULAR HGB CONC 30.9 g/dl (32.0-36.5); MEAN CORPUSCULAR VOLUME 80.8 fl (80.0-96.0); PLATELET COUNT, AUTOMATED 100 10^3/uL (150-450); WHITE BLOOD COUNT 3.9 10^3/uL (4.0-10.0)
[2024-04-19 16:50] LABS: PARTIAL THROMBOPLASTIN TIME 45.1 SECONDS (24.8-34.2)
[2024-04-19 16:52] LABS: INR 1.33; PROTHROMBIN TIME 16.1 SECONDS (12.5-14.5)
[2024-04-19 17:00] LABS: ALBUMIN 3.1 G/DL (3.2-5.2); BILIRUBIN,TOTAL 0.4 MG/DL (0.3-1.2); CALCIUM LEVEL 7.9 MG/DL (8.3-10.6); CREATININE FOR GFR 1.37 MG/DL (0.55-1.30); GLOMERULAR FILTRATION RATE 39.7 (>39); POTASSIUM SERUM 4.3 MMOL/L (3.5-5.1); TOTAL PROTEIN 7.3 G/DL (5.7-8.2)
[2024-04-19] MEDS: PANTOPRAZOLE 40MG TAB (PROTONIX) PO SCH (17:27)
[2024-04-19] MEDS: MAG SULF 1GM/100ML (MAG RUN) 1 GM in IV 1 EA IV ONE (17:28)
[2024-04-19] MEDS: INSULIN LISPRO (NovoLOG) PER UNIT SC SCH ×2 (17:28→20:55)
[2024-04-19 20:00] VITALS: BP 125/59; TEMP 97.7; O2SAT 96
[2024-04-19] MEDS: FAMOTIDINE 20 MG TAB PO SCH (20:55)
[2024-04-19] MEDS: LEVEMIR (INSULIN DETEMIR) 1 UNITS/0.01ML SC SCH (20:55)
[2024-04-19] MEDS: sulfaSALAzine 500 MG TABEC PO SCH (20:55)
[2024-04-19] MEDS: SIMVASTATIN 40 MG TAB PO SCH (20:56)
[2024-04-19] MEDS: METOPROLOL TART 50 MG TAB PO SCH (20:56)
[2024-04-20] VITALS: BP 156/67; TEMP 97.4; O2SAT 97
[2024-04-20] MEDS: ACETAMINOPHEN TAB 650MG DOSE (2X325MG) PO PRN (01:11)
[2024-04-20 04:00] VITALS: BP 142/63; TEMP 97.6; O2SAT 98
[2024-04-20 08:00] VITALS: BP 150/67; TEMP 97.8; O2SAT 97
[2024-04-20] MEDS: CINACALCET 30 MG TAB (SENSIPAR) PO SCH (08:10)
[2024-04-20] MEDS: MAGNESIUM OXIDE 400MG TAB (MAG-OX) PO SCH (08:11)
[2024-04-20 08:18] LABS: HEMATOCRIT 30.3 % (36.0-47.0); HEMOGLOBIN 9.3 g/dl (12.0-15.5); MEAN CORPUSCULAR HEMOGLOBIN 25.1 pg (27.0-33.0); MEAN CORPUSCULAR HGB CONC 30.7 g/dl (32.0-36.5); MEAN CORPUSCULAR VOLUME 81.9 fl (80.0-96.0); WHITE BLOOD COUNT 3.9 10^3/uL (4.0-10.0)
[2024-04-20 08:46] LABS: PLATELET COUNT, AUTOMATED 93 10^3/uL (150-450)
[2024-04-20 09:20] LABS: ALBUMIN 3.3 G/DL (3.2-5.2); BILIRUBIN,TOTAL 0.4 MG/DL (0.3-1.2); CALCIUM LEVEL 8.5 MG/DL (8.3-10.6); CREATININE FOR GFR 1.13 MG/DL (0.55-1.30); GLOMERULAR FILTRATION RATE 49.6 (>39); MAGNESIUM LEVEL 1.9 MG/DL (1.8-2.4); POTASSIUM SERUM 4.9 MMOL/L (3.5-5.1); TOTAL PROTEIN 7.7 G/DL (5.7-8.2)
== END 2024-04-20 12:53 | disposition home or self-care (01) | DRG 919 ==
LOC: M LAB 06:47 → M IRPRO 06:47 → M ED INP 14:23 → M ICU 14:57
PROVIDERS: ADMIT Preventive Medicine Undersea and Hyperbaric Medicine; ATTEND Internal Medicine
PROC: 0BBG3ZX Excision of Left Upper Lung Lobe, Percutaneous Approach, Diagnostic (ICD-10-PCS; principal; 2024-04-19 08:30)
DX: J95.830 Postprocedural hemorrhage of a respiratory system organ or structure following a respiratory system procedure (principal); J96.21 Acute and chronic respiratory failure with hypoxia; J95.1 Acute pulmonary insufficiency following thoracic surgery; I50.32 Chronic diastolic (congestive) heart failure; R04.89 Hemorrhage from other sites in respiratory passages; N17.9 Acute kidney failure, unspecified; R04.2 Hemoptysis; E11.9 Type 2 diabetes mellitus without complications; I11.0 Hypertensive heart disease with heart failure; K74.60 Unspecified cirrhosis of liver; J44.9 Chronic obstructive pulmonary disease, unspecified; I27.20 Pulmonary hypertension, unspecified; R91.1 Solitary pulmonary nodule; K21.9 Gastro-esophageal reflux disease without esophagitis; Z79.4 Long term (current) use of insulin; E83.42 Hypomagnesemia; I48.91 Unspecified atrial fibrillation; E78.5 Hyperlipidemia, unspecified; Z79.899 Other long term (current) drug therapy; Z98.41 Cataract extraction status, right eye; Z98.42 Cataract extraction status, left eye; Z96.653 Presence of artificial knee joint, bilateral; Z87.891 Personal history of nicotine dependence

== ENCOUNTER → 2024-04-30 | Outpatient (CLI) | payer OTHER ==
[~2024-04-30] MED LIST changes: +ALBU2.5V10 INH; +AMIL5TAB4 PO; +METO25TA PO
== END ==
LOC: M ONCR 08:46
PROVIDERS: ATTEND General Practice
DX: C34.12 Malignant neoplasm of upper lobe, left bronchus or lung (principal); C4A.62 Merkel cell carcinoma of left upper limb, including shoulder; Z87.891 Personal history of nicotine dependence; J44.9 Chronic obstructive pulmonary disease, unspecified; Z79.84 Long term (current) use of oral hypoglycemic drugs; Z79.4 Long term (current) use of insulin; Z79.899 Other long term (current) drug therapy; Z92.3 Personal history of irradiation; Z99.81 Dependence on supplemental oxygen

== ENCOUNTER 2024-05-11 13:45 | Outpatient (RCR) | payer OTHER | END 2024-05-15 | LOC: M ONCR 13:45 | PROVIDERS: ATTEND General Practice | DX: Z51.0 Encounter for antineoplastic radiation therapy (principal); C34.12 Malignant neoplasm of upper lobe, left bronchus or lung ==

== ENCOUNTER 2024-05-26 14:06 | Outpatient (RCR) | payer OTHER ==
[~2024-05-26 14:06] MED LIST changes: -DOXY-323 PO; +DOXY-441 PO; +GLIP10TA15 PO; -GLIP10TA6 PO
[2024-06-16] MEDS ORDERED: BUDE0.5S6 PO (18:58)
== END 2024-06-14 ==
LOC: M ONCR 14:06
PROVIDERS: ATTEND General Practice
DX: Z51.0 Encounter for antineoplastic radiation therapy (principal); C34.12 Malignant neoplasm of upper lobe, left bronchus or lung